=== PATIENT | male | born 1955 | race African-American/Black ===

== ENCOUNTER 2019-01-09 23:16 | Emergency (ER) | payer SELFPAY ==
[~2019-01-09] VITALS: Ht 177.8 cm; Wt 95.3 kg
[~2019-01-09 23:16] MED LIST: ?BP MED; CARB200C3 PO; ESOM20CA PO; MECL-106 PO; NAPR-243 PO; OXYC-12 PO; SCOP1PAT11 TD
--- OUTSIDE RECORDS SUMMARY | 2019-01-09 23:22 | XMS REPORT ---
Author Author ZAY COWAN Organization [facility] Address [address] [place] [address] Care Team Providers Care Property Management Bookkeeper Name Role Phone ZAY COWAN Unavailable PROBLEMS Type Condition ICD9-CM Code BRW89-[id number] Code Onset Dates Condition Status SNOMED Code Problem Trigeminal neuralgia G50.0 Active 00237832 Problem Alcohol abuse F10.10 Active 23969286 Problem Hypercholesteremia E78.00 Active 77729987 Problem Gait disturbance R26.9 Active 12162924 Problem Gastro-esophageal reflux disease without esophagitis K21.9 Active 063011964 Problem Essential hypertension I10 Active 06459905 Problem Benign prostatic hyperplasia with lower urinary tract symptoms, unspecified morphology N40.1 Active 404725170 Problem Erectile dysfunction, unspecified erectile dysfunction type N52.9 Active 405653293 ALLERGIES No Information ENCOUNTERS Encounter Location Date Diagnosis [place] [address] [address]- [address] Jun, [place] [address] [place] [id number] [place] [address] 28398- 1838 Jun, Hypercholesteremia E78.00 [place] [address] [place] [id number] [place] [address] 10195- 7850 May, Essential hypertension I10 ; Trigeminal neuralgia G50.0 ; Erectile dysfunction, unspecified erectile dysfunction type N52.9 ; Vertigo R42 ; Gastro-esophageal reflux disease without esophagitis K21.9 ; Snoring R06.83 and Visual disturbance H53.9 [place] [address] [place] [id number] [place] [address] 07865- 3885 Apr, Essential hypertension I10 [place] [address] [place] [id number] [place] [address] 79340- 8869 Mar, [place] [id number] [place] [id number] [place] [address] 71109- 8346 February, [facility] [address] [place] [id number] [place] [address] 97112- 5527 Dec, [facility] [address] [place] [id number] [place] [address] 78911- 1148 Jun, Essential hypertension I10 and Vertigo R42 [place] [address] 41143- 0770 May, Tooth pain K08.89 and Trigeminal neuralgia G50.0 [place] [address] 70768- 5007 Apr, Gait disturbance R26.9 ; Alcohol abuse F10.10 and Essential hypertension I10 [place] [address] [place] [id number] [place] [address] 69146- 3362 Apr, Trigeminal neuralgia G50.0 ; Essential hypertension I10 ; Erectile dysfunction, unspecified erectile dysfunction type N52.9 ; Gastro- esophageal reflux disease without esophagitis K21.9 and Vertigo R42 [place] [address] [place] [id number] [place] [address] 87177- 9330 Mar, Trigeminal neuralgia G50.0 [place] [address] [place] [id number] [place] [address] 03986- 7423 February, Trigeminal neuralgia G50.0 and Erectile dysfunction, unspecified erectile dysfunction type N52.9 [place] [address] [place] [id number] [place] [address] 96093- 8332 Oct, Erectile dysfunction, unspecified erectile dysfunction type N52.9 [place] [address] [place] [id number] [place] [address] 40622- 2079 Oct, Gastro-esophageal reflux disease without esophagitis K21.9 [place] [address] [place] [id number] [place] [address] 28260- 7304 Oct, Erectile dysfunction, unspecified erectile dysfunction type N52.9 [place] [address] [place] [id number] [place] [address] 61901- 7223 Oct, Trigeminal neuralgia G50.0 ; Erectile dysfunction, unspecified erectile dysfunction type N52.9 and Vertigo R42 [place] [address] [place] [id number] [place] [address] 62841- 5774 Sep, Elevated PSA R97.20 ; Benign prostatic hyperplasia with lower urinary tract symptoms, unspecified morphology N40.1 and Trigeminal neuralgia G50.0 [place] [address] [place] [id number] [place] [address] 23077- 6110 Aug, [place] [address] 87755- 9349 Aug, Gastro-esophageal reflux disease without esophagitis K21.9 ; Vertigo R42 ; Erectile dysfunction, unspecified erectile dysfunction type N52.9 ; Trigeminal neuralgia G50.0 ; Essential hypertension I10 and Prostate cancer screening Z12.5 [place] [address] [place] [id number] [place] [address] 69841- 2144 Aug, [place] [address] [place] [id number] [place] [address] 45166- 9399 Jun, [place] [address] [place] [id number] [place] [address] 18086- 9254 May, Erectile dysfunction, unspecified erectile dysfunction type N52.9 ; Trigeminal neuralgia G50.0 and Essential hypertension I10 [place] [address] [place] [id number] [place] [address] 59742- 8748 Nov, [place] [address] [place] [id number] [place] [address] 12488- 8188 Aug, Trigeminal neuralgia G50.0 ; Insomnia, unspecified type G47.00 and Weight loss R63.4 [place] [address] [place] [id number] [place] [address] 92844- 5132 Jul, [place] [address] [place] [id number] [place] [address] 36554- 0983 Jun, [facility] [address] [address]- 3542 Apr, [facility] [address] [place] [id number] [place] [address] 62899- 8178 February, Neuropathy 355.9 ; GERD (gastroesophageal reflux disease) 530.81 ; Erectile disorder, generalized, mild 302.72 and High serum creatinine 790.99 [facility] [address] [place] [id number] [place] [address] 44851- 7616 February, [facility] [address] [place] [id number] [place] [address] 78049- 2999 Jan, [facility] [address] [place] [id number] [place] [address] 78538- 0564 Jan, [facility] [address] [place] [id number] [place] [address] 43554- 9762 Dec, [facility] [address] [place] [id number] [place] [address] 11266- 8105 Dec, [facility] [address] [place] [address] 45290- 8452 Dec, [facility] [address] [place] [id number] [place] [address] 32212- 7831 Dec, [facility] [address] [address]- 0266 Dec, [facility] [id number] [place] [address] 50625- 0887 Dec, [facility] [address] [address]- 2290 Nov, [facility] [address] [place] [id number] [place] [address] 19676- 7796 Oct, [facility] [address] [address]- 0346 Oct, [facility] [address] [place] [id number] [place] [address]- 3458 Oct, [facility] [place] [facility] [address] [id number] [place] [address]644 Oct, [facility] [place] [facility] [address] [id number] [place] [address]272 Sep, [facility] [place] [facility] [address] [id number] [place] [address]- 3312 Sep, [facility] [place] [facility] [address] [id number] [place] [address]- 8753 May, [facility] [place] [facility] [address] [id number] [place] 6557 May, [facility] [place] [facility] [address] [id number] [place] [address]- 0161 Jan, [facility] [place] [facility] [address] [id number] [place] [address]- 6378 Jan, [facility] [place] [facility] [address] [id number] [place] [address]- 0550 Nov, [facility] [place] [facility] [address] [id number] [place] [address]- 8916 Nov, [facility] [place] [facility] [address] [facility] [id number] [place] [address]- 9475 Nov, [facility] [place] [facility] [address] [id number] [place] [address]- 3841 Nov, [facility] [place] [facility] [address] [facility] [id number] [place] [address]- 5970 Nov, [facility] [place] [facility] [address] [id number] [place] 1776 Nov, [facility] [place] [facility] [address] [facility] [id number] [place] 0765 Nov, [facility] [place] [facility] [address] [facility] [id number] [place] [address]- 3139 Sep, [facility] [address] [facility] [id number] [address]- 2546 Sep, [facility] [address] [place] [id number] [address]- 2546 Sep, [facility] [address] [place] [id number] [address]- 2546 Sep, [facility] [address], [place] [address] 2546 Aug, [facility] [address] [place] [id number] [address]- 7896 Aug, [facility] [address] [id number] [id number] Apr, [facility] [address] [place] [id number] [address]- 7206 Apr, [facility] [address] [place] [id number] [address]- 2146 Dec, IMMUNIZATIONS No Known Immunizations SOCIAL HISTORY Never Assessed REASON FOR VISIT eye exam PLAN OF CARE VITAL SIGNS MEDICATIONS Unknown Medications RESULTS No Results PROCEDURES No Known procedures INSTRUCTIONS MEDICATIONS ADMINISTERED No Known Medications MEDICAL (GENERAL) HISTORY Type Description Date Medical History hypertension Medical History hyperlipidemia Medical History gastroesophageal reflux disease (GERD) Medical History trigeminal neuralgia Medical History vertigo Surgical History hernia repair Hospitalization History surgery only
--- OUTSIDE RECORDS SUMMARY | 2019-01-09 23:22 | XMS REPORT ---
Author Author ZAY COWAN Organization [facility] Address [address] [place] [address] Care Team Providers Care Electrical Equipment Technician Name Role Phone ZAY COWAN Unavailable PROBLEMS Type Condition ICD9-CM Code OCM90-KY Code Onset Dates Condition Status SNOMED Code Problem Trigeminal neuralgia G50.0 Active 34982603 Problem Alcohol abuse F10.10 Active 83022525 Problem Hypercholesteremia E78.00 Active 26555961 Problem Gait disturbance R26.9 Active 69694760 Problem Gastro-esophageal reflux disease without esophagitis K21.9 Active 024422821 Problem Essential hypertension I10 Active 58547665 Problem Benign prostatic hyperplasia with lower urinary tract symptoms, unspecified morphology N40.1 Active 631534609 Problem Erectile dysfunction, unspecified erectile dysfunction type N52.9 Active 714539944 ALLERGIES No Known Allergies ENCOUNTERS Encounter Location Date Diagnosis [place] [address] [address]- 7359 Jun, [place] [address] 64639- 5563 Jun, Hypercholesteremia E78.00 [facility] [address] [place] [id number] [place] [address] 66362- 2441 May, Essential hypertension I10 ; Trigeminal neuralgia G50.0 ; Erectile dysfunction, unspecified erectile dysfunction type N52.9 ; Vertigo R42 ; Gastro-esophageal reflux disease without esophagitis K21.9 ; Snoring R06.83 and Visual disturbance H53.9 [facility] [address] [place] [id number] [place] [address] 30206- 2299 Apr, Essential hypertension I10 [place] [address] 08334- 8041 Mar, [facility] [address] [place] [id number] [place] [address] 31944- 5550 February, [facility] [address] [place] [id number] [place] [address] 56518- 9696 Dec, [facility] [address] [place] [id number] [place] [address] 62879- 0023 14 Jun, 2017 Essential hypertension I10 and Vertigo R42 [place] [address] 66782- 0680 May, Tooth pain K08.89 and Trigeminal neuralgia G50.0 [place] [address] 10563- 3198 Apr, Gait disturbance R26.9 ; Alcohol abuse F10.10 and Essential hypertension I10 [place] [address] [place] [id number] [place] [address] 01930- 8242 Apr, Trigeminal neuralgia G50.0 ; Essential hypertension I10 ; Erectile dysfunction, unspecified erectile dysfunction type N52.9 ; Gastro- esophageal reflux disease without esophagitis K21.9 and Vertigo R42 [place] [address] [place] [id number] [place] [address] 47209- 1070 Mar, Trigeminal neuralgia G50.0 [place] [address] [place] [id number] [place] [address] 17010- 1937 February, Trigeminal neuralgia G50.0 and Erectile dysfunction, unspecified erectile dysfunction type N52.9 [place] [address] [place] [id number] [place] [address] 16236- 6690 Oct, Erectile dysfunction, unspecified erectile dysfunction type N52.9 [place] [address] [place] [id number] [place] [address] 22039- 2271 Oct, Gastro-esophageal reflux disease without esophagitis K21.9 [place] [address] [place] [id number] [place] [address] 00072- 4390 Oct, Erectile dysfunction, unspecified erectile dysfunction type N52.9 [place] [address] [place] [id number] [place] [address] 84269- 0426 Oct, Trigeminal neuralgia G50.0 ; Erectile dysfunction, unspecified erectile dysfunction type N52.9 and Vertigo R42 [place] [address] [place] [id number] [place] [address] 38659- 3825 Sep, Elevated PSA R97.20 ; Benign prostatic hyperplasia with lower urinary tract symptoms, unspecified morphology N40.1 and Trigeminal neuralgia G50.0 [place] [address] [place] [id number] [place] [address] 25303- 8716 Aug, [place] [address] 09045- 9812 Aug, Gastro-esophageal reflux disease without esophagitis K21.9 ; Vertigo R42 ; Erectile dysfunction, unspecified erectile dysfunction type N52.9 ; Trigeminal neuralgia G50.0 ; Essential hypertension I10 and Prostate cancer screening Z12.5 [place] [address] [place] [id number] [place] [address] 16696- 4707 Aug, [place] [address] [place] [id number] [place] [address] 59223- 4202 Jun, [place] [address] [place] [id number] [place] [address] 66656- 0983 May, Erectile dysfunction, unspecified erectile dysfunction type N52.9 ; Trigeminal neuralgia G50.0 and Essential hypertension I10 [place] [address] [place] [id number] [place] [address] 82892- 2909 Nov, [place] [address] [place] [id number] [place] [address] 45352- 2948 Aug, Trigeminal neuralgia G50.0 ; Insomnia, unspecified type G47.00 and Weight loss R63.4 [place] [address] [place] [id number] [place] [address] 95598- 1147 Jul, [place] [address] [place] [id number] [place] [address] 07982- 6378 Jun, [facility] [address] [address]- 8523 Apr, [facility] [address] [place] [id number] [place] [address] 36523- 2885 February, Neuropathy 355.9 ; GERD (gastroesophageal reflux disease) 530.81 ; Erectile disorder, generalized, mild 302.72 and High serum creatinine 790.99 [facility] [address] [place] [id number] [place] [address] 29398- 2146 February, [facility] [address] [place] [id number] [place] [address] 26278- 0447 Jan, [facility] [address] [place] [id number] [place] [address] 50514- 1596 Jan, [facility] [address] [place] [id number] [place] [address] 82291- 1632 Dec, [facility] [address] [place] [id number] [place] [address] 04618- 2730 Dec, [facility] [id number] [place] [address] 75119- 6435 Dec, [facility] [address] [place] [id number] [place] [address] 29293- 1926 Dec, [facility] [address] [address]- 6806 Dec, [facility] [address] [address]- 9938 Dec, [facility] [address] [address]- 4992 Nov, [facility] [address] [place] [id number] [place] [address] 07477- 9236 Oct, [facility] [address] [address]- 8286 Oct, [facility] [address] [place] [id number] [place] [address]- 4346 Oct, [facility] [address] [id number] [place] [address]- 8765 Oct, [facility] [place] [facility] [address] [id number] [place] 5632 Sep, [facility] [place] [facility] [address] [id number] [place] [address]- 0927 Sep, [facility] [place] [facility] [address] [id number] [place] [address]- 3309 May, [facility] [place] [facility] [address] [id number] [place] 3922 May, [facility] [place] [facility] [address] [facility] [id number] [place] [address]- 8408 Jan, [facility] [place] [facility] [address] [id number] [place] [address]- 8991 Jan, [facility] [place] [facility] [address] [id number] [place] [address]- 7775 Nov, [facility] [place] [facility] [address] [id number] [place] [address]- 1179 Nov, [facility] [place] [facility] [address] [facility] [id number] [place] [address]- 5150 Nov, [facility] [place] [facility] [address] [facility] [id number] [place] [address]- 5456 Nov, [facility] [place] [facility] [address] [id number] [place] [address]- 1049 Nov, [facility] [place] [facility] [address] [id number] [place] [address]- 6735 Nov, [facility] [place] [facility] [address] [facility] [id number] [place] [address]- 3276 Nov, [facility] [place] [facility] [address] [facility] [id number] [place] [address]- 5950 Sep, [facility] [address] [facility] [id number] [address]- 2546 Sep, [facility] [address] [facility] [id number] [place] [address]- 2546 Sep, [facility] [address] [facility] [id number] [place] [address]- 2546 Sep, [facility] [address] [facility] [id number] [place] [address]- 2546 Aug, [facility] [address] [facility] [id number] [place] [address] 2546 Aug, [facility] [address] [id number] [id number] Apr, [facility] [address] [facility] [id number] [address] 2546 Apr, [facility] [address] [facility] [id number] [place] [address] 2546 Dec, IMMUNIZATIONS No Known Immunizations SOCIAL HISTORY Never Assessed REASON FOR VISIT Hypertension follow up, unable to take norvasc, it causes dizziness. KATHARINA Villar , Trouble sleeping. PLAN OF CARE Activity Details Follow Up 3 Months Reason:BP VITAL SIGNS Height 71 in 2018-06-15 Weight 201.2 lbs 2018-06-15 Temperature 97.4 degrees Fahrenheit 2018-06-15 Heart Rate 84 bpm 2018-06-15 Respiratory Rate 18 2018-06-15 BMI 28.06 kg/m2 2018-06-15 Blood pressure systolic 172 mmHg 2018-06-15 Blood pressure diastolic 118 mmHg 2018-06-15 MEDICATIONS Medication Instructions Dosage Frequency Start Date End Date Duration Status Tegretol 200 mg Orally Twice a day 3 tablets 12h 30 days Active Coreg 6.25 MG Orally 2 times a day 1 capsule 12h May, 90 days Active Viagra 100 mg Orally PRN 1 /2 tablet as needed May, Active Nexium 40 mg Orally Once a day 1 capsule 24h 14 Dec, 2014 90 days Active RESULTS No Results PROCEDURES Procedure Date Ordered Result Body Site COMPREHEN METABOLIC PANEL Jun 15, 2018 LIPID PANEL Jun 15, 2018 INSTRUCTIONS MEDICATIONS ADMINISTERED No Known Medications MEDICAL (GENERAL) HISTORY Type Description Date Medical History hypertension Medical History hyperlipidemia Medical History gastroesophageal reflux disease (GERD) Medical History trigeminal neuralgia Medical History vertigo Surgical History hernia repair Hospitalization History surgery only
--- OUTSIDE RECORDS SUMMARY | 2019-01-09 23:22 | XMS REPORT ---
Author Author ZAY COWAN Organization [facility] Address [address] [place] [address] Care Team Providers Care Duplicating Machine Operator Name Role Phone ZAY COWAN Unavailable PROBLEMS Type Condition ICD9-CM Code [id number] Code Onset Dates Condition Status SNOMED Code Problem Trigeminal neuralgia G50.0 Active 55158085 Problem Alcohol abuse F10.10 Active 57953616 Problem Hypercholesteremia E78.00 Active 30700724 Problem Gait disturbance R26.9 Active 78062552 Problem Gastro-esophageal reflux disease without esophagitis K21.9 Active 250534298 Problem Essential hypertension I10 Active 85181413 Problem Benign prostatic hyperplasia with lower urinary tract symptoms, unspecified morphology N40.1 Active 757817764 Problem Erectile dysfunction, unspecified erectile dysfunction type N52.9 Active 402103822 ALLERGIES No Information ENCOUNTERS Encounter Location Date Diagnosis [place] [address] [address]- [address] Jun, [place] [address] [place] [id number] [place] [address] 88147- 6436 Jun, Hypercholesteremia E78.00 [place] [address] [place] [id number] [place] [address] 56751- 2564 May, Essential hypertension I10 ; Trigeminal neuralgia G50.0 ; Erectile dysfunction, unspecified erectile dysfunction type N52.9 ; Vertigo R42 ; Gastro-esophageal reflux disease without esophagitis K21.9 ; Snoring R06.83 and Visual disturbance H53.9 [place] [address] [place] [id number] [place] [address] 02762- 1937 Apr, Essential hypertension I10 [place] [address] [place] [id number] [place] [address] 35606- 4099 Mar, [place] [address] [place] [id number] [place] [address] 93292- 1684 February, [facility] [address] [address] [id number] [place] [address] 42471- 7891 Dec, [facility] [id number] [place] [address] 86158- 1191 Jun, Essential hypertension I10 and Vertigo R42 [place] [address] 38403- 8489 May, Tooth pain K08.89 and Trigeminal neuralgia G50.0 [place] [address] 21851- 2273 Apr, Gait disturbance R26.9 ; Alcohol abuse F10.10 and Essential hypertension I10 [place] [address] [place] [id number] [place] [address] 27045- 7066 Apr, Trigeminal neuralgia G50.0 ; Essential hypertension I10 ; Erectile dysfunction, unspecified erectile dysfunction type N52.9 ; Gastro- esophageal reflux disease without esophagitis K21.9 and Vertigo R42 [place] [address] [place] [id number] [place] [address] 98055- 6918 Mar, Trigeminal neuralgia G50.0 [place] [address] [place] [id number] [place] [address] 44566- 0803 February, Trigeminal neuralgia G50.0 and Erectile dysfunction, unspecified erectile dysfunction type N52.9 [place] [address] [place] [id number] [place] [address] 88636- 2636 Oct, Erectile dysfunction, unspecified erectile dysfunction type N52.9 [place] [address] [place] [id number] [place] [address] 14442- 1171 Oct, Gastro-esophageal reflux disease without esophagitis K21.9 [place] [address] [place] [id number] [place] [address] 10278- 2622 Oct, Erectile dysfunction, unspecified erectile dysfunction type N52.9 [place] [address] [place] [id number] [place] [address] 23611- 8947 Oct, Trigeminal neuralgia G50.0 ; Erectile dysfunction, unspecified erectile dysfunction type N52.9 and Vertigo R42 [place] [address] [place] [id number] [place] [address] 97909- 9400 Sep, Elevated PSA R97.20 ; Benign prostatic hyperplasia with lower urinary tract symptoms, unspecified morphology N40.1 and Trigeminal neuralgia G50.0 [place] [address] [place] [id number] [place] [address] 80930- 5759 Aug, [place] [address] 42811- 5048 Aug, Gastro-esophageal reflux disease without esophagitis K21.9 ; Vertigo R42 ; Erectile dysfunction, unspecified erectile dysfunction type N52.9 ; Trigeminal neuralgia G50.0 ; Essential hypertension I10 and Prostate cancer screening Z12.5 [place] [address] [place] [id number] [place] [address] 35896- 1137 Aug, [place] [address] [place] [id number] [place] [address] 63156- 2899 Jun, [place] [address] [place] [id number] [place] [address] 49068- 0443 May, Erectile dysfunction, unspecified erectile dysfunction type N52.9 ; Trigeminal neuralgia G50.0 and Essential hypertension I10 [place] [address] [place] [id number] [place] [address] 20443- 1687 Nov, [place] [address] [place] [id number] [place] [address] 48457- 6880 Aug, Trigeminal neuralgia G50.0 ; Insomnia, unspecified type G47.00 and Weight loss R63.4 [place] [address] [place] [id number] [place] [address] 37628- 2147 Jul, [place] [address] [place] [id number] [place] [address] 44146- 1561 Jun, [facility] [address] [address]- 8902 Apr, [facility] [address] [place] [id number] [place] [address] 72011- 3596 February, Neuropathy 355.9 ; GERD (gastroesophageal reflux disease) 530.81 ; Erectile disorder, generalized, mild 302.72 and High serum creatinine 790.99 [facility] [address] [place] [id number] [place] [address] 25388- 3496 February, [facility] [address] [place] [id number] [place] [address] 37853- 8530 Jan, [facility] [address] [place] [id number] [place] [address] 56862- 0823 Jan, [facility] [address] [place] [id number] [place] [address] 71292- 3287 Dec, [facility] [address] [place] [id number] [place] [address] 11264- 2550 Dec, [facility] [address] [place] [address] 17834- 8486 Dec, [facility] [address] [place] [id number] [place] [address] 10231- 7654 Dec, [facility] [address] [address]- 7846 Dec, [facility] [address] [place] [address] 56099- 5704 Dec, [facility] [address], [place] [address]- 5899 Nov, [facility] [address] [place] [address] [id number] [place] [address] 39722- 5986 Oct, [facility] [address], [place] [address]- 1866 Oct, [facility] [address] [place] [address] [id number] [place] [address]- 1148 Oct, [facility] [place] [facility] [address] [id number] [place] 1494 Oct, [facility] [place] [facility] [address] [id number] [place] 0339 Sep, [facility] [place] [facility] [address] [id number] [place] [address]- 0271 Sep, [facility] [place] [facility] [address] [id number] [place] [address]- 1535 May, [facility] [place] [facility] [address] [id number] [place] 6996 May, [facility] [place] [facility] [address] [id number] [place] [address]- 6579 Jan, [facility] [place] [facility] [address] [id number] [place] [address]- 9225 Jan, [facility] [place] [facility] [address] [id number] [place] [address]- 1505 Nov, [facility] [place] [facility] [address] [id number] [place] [address]- 1364 Nov, [facility] [place] [facility] [address] [facility] [id number] [place] [address]- 2632 Nov, [facility] [place] [facility] [address] [id number] [place] [address]- 6076 Nov, [facility] [place] [facility] [address] [facility] [id number] [place] [address]- 0054 Nov, [facility] [place] [facility] [address] [id number] [place] 2951 Nov, [facility] [place] [facility] [address] [facility] [id number] [place] 0220 Nov, [facility] [place] [facility] [address] [facility] [id number] [place] [address]- 5305 Sep, [facility] [address] [facility] [id number] [address]- 2546 Sep, [facility] [address] [place] [address] [id number] [address]- 2546 Sep, [facility] [address] [place] [address] [id number] [address]- 2546 Sep, [facility] [address] [address]- 2546 Aug, [facility] [address] [address] [id number] [address]- 2216 Aug, [facility] [address] [id number] [address] Apr, [facility] [address] [place] [address] [id number] [address]- 8546 Apr, [facility] [address] [address] [id number], [place] [address]- 1256 Dec, IMMUNIZATIONS No Known Immunizations SOCIAL HISTORY Never Assessed REASON FOR VISIT Patient education PLAN OF CARE VITAL SIGNS MEDICATIONS Unknown Medications RESULTS No Results PROCEDURES No Known procedures INSTRUCTIONS MEDICATIONS ADMINISTERED No Known Medications MEDICAL (GENERAL) HISTORY Type Description Date Medical History hypertension Medical History hyperlipidemia Medical History gastroesophageal reflux disease (GERD) Medical History trigeminal neuralgia Medical History vertigo Surgical History hernia repair Hospitalization History surgery only
--- OUTSIDE RECORDS SUMMARY | 2019-01-09 23:23 | XMS REPORT ---
Author Author ZAY COWAN Organization [employer] Address Unknown Phone Unavailable Care Team Providers Care Tractor Operator Battery Name Role Phone ZAY COWAN CP Unavailable Allergies No Known Allergies Problems Problem Type Condition Code Onset Dates Condition Status Problem Issue of repeat prescriptions V68.1 Active Problem Other and unspecified hyperlipidemia 272.4 Active Problem Personal history of tobacco use, presenting hazards to health V15.82 Active Problem Cough 786.2 Active Problem Erectile dysfunction, unspecified erectile dysfunction type N52.9 Active Problem Essential hypertension I10 Active Problem Gastro-esophageal reflux disease without esophagitis K21.9 Active Problem Routine general medical examination at health care facility V70.0 Active Problem Esophageal reflux 530.81 Active Problem Trigeminal neuralgia G50.0 Active Problem Alcohol abuse F10.10 Active Medications No Known Medications Results No Known Results Summary Purpose [employer] Submission
--- OUTSIDE RECORDS SUMMARY | 2019-01-09 23:23 | XMS REPORT ---
Author Author KAMRYN BRANTLEY Organization [employer] Address Unknown Phone Unavailable Care Team Providers Care Umbrella Cutter Name Role Phone KAMRYN BRANTLEY CP Unavailable Allergies, Adverse Reactions, Alerts Substance Reaction Event Type N.K.D.A. Info Not Available Non Drug Allergy Problems Problem Type Condition Code Onset Dates Condition Status Assessment Essential hypertension I10 Active Assessment Erectile dysfunction, unspecified erectile dysfunction type N52.9 Active Assessment Trigeminal neuralgia G50.0 Active Problem Routine general medical examination at health care facility V70.0 Active Problem Esophageal reflux 530.81 Active Problem Trigeminal neuralgia G50.0 Active Problem Issue of repeat prescriptions V68.1 Active Problem Cough 786.2 Active Problem Other and unspecified hyperlipidemia 272.4 Active Problem Personal history of tobacco use, presenting hazards to health V15.82 Active Medications Medication Code System Code Instructions Start Date End Date Status Dosage Tegretol [facility] [address]-89 200 MG Orally Twice a day (MUST BE TEGRETOL) Nov 20, 2014 2 tablet by Oral route 2 times per day Nexium [facility] [address]-28 40 MG January 05, 2015 1 capsule by Oral route 1 time per day Naproxen [facility] [address]-71 500 MG Orally every 12 hrs May 25, 2016 1 tablet as needed Viagra [facility] [address]-03 100 MG Orally Once a day March 14, 2015 1 tablet as needed Procedures Procedure Coding System Code Date Office Visit, Est Pt., Level 3 CPT-4 55087 May 25, 2016 Vital Signs Date/Time: May 25, 2016 Cardiac Monitoring Heart Rate 80 bpm Weight 205.3 lbs Height 71 in BMI 28.63 Index Blood Pressure Diastolic 130 mmHg Blood Pressure Systolic 192 mmHg Results No Known Results Summary Purpose [employer] Submission
--- OUTSIDE RECORDS SUMMARY | 2019-01-09 23:23 | XMS REPORT ---
Author Author ZAY COWAN Organization [facility] Address [address] [place] [address] Care Team Providers Care Moccasin Sewer Name Role Phone ZAY COWAN Unavailable PROBLEMS Type Condition ICD9-CM Code [id number] Code Onset Dates Condition Status SNOMED Code Problem Trigeminal neuralgia G50.0 Active 98320142 Problem Alcohol abuse F10.10 Active 47940784 Problem Hypercholesteremia E78.00 Active 95516855 Problem Gait disturbance R26.9 Active 25062447 Problem Gastro-esophageal reflux disease without esophagitis K21.9 Active 866262914 Problem Essential hypertension I10 Active 84707789 Problem Benign prostatic hyperplasia with lower urinary tract symptoms, unspecified morphology N40.1 Active 391456227 Problem Erectile dysfunction, unspecified erectile dysfunction type N52.9 Active 022428910 ALLERGIES No Information ENCOUNTERS Encounter Location Date Diagnosis [place] [address] 6[address]12- 5454 Jun, [place] [address] [place] [id number] [place] [address] 34085- 7502 Jun, Hypercholesteremia E78.00 [place] [address] [place] [id number] [place] [address] 22956- 9397 May, Essential hypertension I10 ; Trigeminal neuralgia G50.0 ; Erectile dysfunction, unspecified erectile dysfunction type N52.9 ; Vertigo R42 ; Gastro-esophageal reflux disease without esophagitis K21.9 ; Snoring R06.83 and Visual disturbance H53.9 [place] [address] [place] [id number] [place] [address] 18555- 7538 Apr, Essential hypertension I10 [place] [address] [place] [id number] [place] [address] 33549- 3805 Mar, [place] [address] [place] [id number] [place] [address] 55960- 3245 February, [facility] [address] [place] [id number] [place] [address] 91552- 2485 Dec, [facility] [address] [place] [id number] [place] [address] 61558- 5524 Jun, Essential hypertension I10 and Vertigo R42 [place] [address] 47771- 8106 May, Tooth pain K08.89 and Trigeminal neuralgia G50.0 [place] [address] 32262- 5669 Apr, Gait disturbance R26.9 ; Alcohol abuse F10.10 and Essential hypertension I10 [place] [address] [place] [id number] [place] [address] 77342- 3368 Apr, Trigeminal neuralgia G50.0 ; Essential hypertension I10 ; Erectile dysfunction, unspecified erectile dysfunction type N52.9 ; Gastro- esophageal reflux disease without esophagitis K21.9 and Vertigo R42 [place] [address] [place] [id number] [place] [address] 61930- 4932 Mar, Trigeminal neuralgia G50.0 [place] [address] [place] [id number] [place] [address] 48264- 1856 February, Trigeminal neuralgia G50.0 and Erectile dysfunction, unspecified erectile dysfunction type N52.9 [place] [address] [place] [id number] [place] [address] 43524- 1513 Oct, Erectile dysfunction, unspecified erectile dysfunction type N52.9 [place] [address] [place] [id number] [place] [address] 69967- 3246 Oct, Gastro-esophageal reflux disease without esophagitis K21.9 [place] [address] [place] [id number] [place] [address] 89309- 2706 Oct, Erectile dysfunction, unspecified erectile dysfunction type N52.9 [place] [address] [place] [id number] [place] [address] 74004- 1555 Oct, Trigeminal neuralgia G50.0 ; Erectile dysfunction, unspecified erectile dysfunction type N52.9 and Vertigo R42 [place] [address] [place] [id number] [place] [address] 78914- 0187 Sep, Elevated PSA R97.20 ; Benign prostatic hyperplasia with lower urinary tract symptoms, unspecified morphology N40.1 and Trigeminal neuralgia G50.0 [place] [address] [place] [id number] [place] [address] 09616- 4133 Aug, [place] [address] 03605- 4915 Aug, Gastro-esophageal reflux disease without esophagitis K21.9 ; Vertigo R42 ; Erectile dysfunction, unspecified erectile dysfunction type N52.9 ; Trigeminal neuralgia G50.0 ; Essential hypertension I10 and Prostate cancer screening Z12.5 [place] [address] [place] [id number] [place] [address] 97280- 2667 Aug, [place] [address] [place] [id number] [place] [address] 22841- 9713 Jun, [place] [address] [place] [id number] [place] [address] 76309- 4166 May, Erectile dysfunction, unspecified erectile dysfunction type N52.9 ; Trigeminal neuralgia G50.0 and Essential hypertension I10 [place] [address] [place] [id number] [place] [address] 21495- 8717 Nov, [place] [address] [place] [id number] [place] [address] 83200- 9437 Aug, Trigeminal neuralgia G50.0 ; Insomnia, unspecified type G47.00 and Weight loss R63.4 [place] [address] [place] [id number] [place] [address] 05078- 5283 Jul, [place] [address] [place] [id number] [place] [address] 39503- 1279 Jun, [facility] [address] [address]- 3006 Apr, [facility] [address] [place] [id number] [place] [address] 27254- 3634 February, Neuropathy 355.9 ; GERD (gastroesophageal reflux disease) 530.81 ; Erectile disorder, generalized, mild 302.72 and High serum creatinine 790.99 [facility] [id number] [place] [address] 15673- 3466 February, [facility] [address] [place] [id number] [place] [address] 83425- 2364 Jan, [facility] [id number] [place] [address] 60020- 1421 Jan, [facility] [address] [id number] [place] [address] 33598- 4264 Dec, [facility] [address] [place] [address] [id number] [place] [address] 99641- 6463 Dec, [facility] [address] [place] [address] 72789- 6433 Dec, [facility] [id number] [place] [address] 88502- 0330 Dec, [facility] [address], [place] [address]- 3136 Dec, [facility] [address] [place] [address] 59226- 2599 Dec, [facility] [address], [place] [address]- 6595 Nov, [facility] [id number] [place] [address] 81421- 8536 Oct, [facility] [address], [place] [address]- 7876 Oct, [facility] [id number] [place] [address]- 2080 Oct, [facility] [place] [facility] [address] [id number] [place] 2603 Oct, [facility] [place] [facility] [address] [id number] [place] 7107 Sep, [facility] [place] [facility] [address] [id number] [place] [address]- 7254 Sep, [facility] [place] [facility] [address] [id number] [place] [address]- 8658 May, [facility] [place] [facility] [address] [id number] [place] 4820 May, [facility] [place] [facility] [address] [id number] [place] [address]- 7052 Jan, [facility] [place] [facility] [address] [id number] [place] [address]- 6875 Jan, [facility] [place] [facility] [address] [id number] [place] [address]- 7667 Nov, [facility] [place] [facility] [address] [id number] [place] [address]- 0554 Nov, [facility] [place] [facility] [address] [facility] [id number] [place] [address]- 1856 Nov, [facility] [place] [facility] [address] [id number] [place] [address]- 2263 Nov, [facility] [place] [facility] [address] [facility] [id number] [place] [address]- 3760 Nov, [facility] [place] [facility] [address] [id number] [place] 1942 Nov, [facility] [place] [facility] [address] [facility] [id number] [place] 4603 Nov, [facility] [place] [facility] [address] [facility] [id number] [place] [address]- 1270 Sep, [facility] [address] [facility] [id number] [address]- 2546 Sep, [facility] [address] [facility] [id number], [place] [address]- 2546 Sep, [facility] [address] [facility] [id number], [place] [address]- 2546 Sep, [facility] [id number], [place] [address]- 2546 Aug, [facility] [address] [facility] [id number], [place] [address]- 2546 Aug, [facility] [address] [id number] [id number] Apr, [facility] [id number] [address]- 2546 Apr, [facility] [id number], [place] [address]- 2546 Dec, IMMUNIZATIONS No Known Immunizations SOCIAL HISTORY Never Assessed REASON FOR VISIT Refill request PLAN OF CARE VITAL SIGNS MEDICATIONS Medication Instructions Dosage Frequency Start Date End Date Duration Status Tegretol 200 mg Orally Twice a day 3 tablets 12h 30 days Active Norvasc 10 mg Orally Once a day 1 tablet 24h Apr, 30 days Active RESULTS No Results PROCEDURES No Known procedures INSTRUCTIONS MEDICATIONS ADMINISTERED No Known Medications MEDICAL (GENERAL) HISTORY Type Description Date Medical History hypertension Medical History hyperlipidemia Medical History gastroesophageal reflux disease (GERD) Medical History trigeminal neuralgia Medical History vertigo Surgical History hernia repair Hospitalization History surgery only
--- OUTSIDE RECORDS SUMMARY | 2019-01-09 23:23 | XMS REPORT ---
Author Author ZAY COWAN Organization [facility] Address [address] [place] [address] Care Team Providers Care Broom Worker Name Role Phone ZAY COWAN Unavailable PROBLEMS Type Condition ICD9-CM Code AHI13-JG Code Onset Dates Condition Status SNOMED Code Problem Alcohol abuse F10.10 Active 36318629 Problem Gait disturbance R26.9 Active 62198253 Problem Benign prostatic hyperplasia with lower urinary tract symptoms, unspecified morphology N40.1 Active 548436864 Problem Essential hypertension I10 Active 22486609 Problem Trigeminal neuralgia G50.0 Active 29540005 Problem Erectile dysfunction, unspecified erectile dysfunction type N52.9 Active 188375476 Problem Gastro-esophageal reflux disease without esophagitis K21.9 Active 639832169 ALLERGIES No Information ENCOUNTERS Encounter Location Date Diagnosis [place] [address] [address] Mar, [place] [address] 559[address]- 8171 February, [facility] [address] [address]- [address] Dec, [facility] [address] 15[address]- 6553 Jun, Essential hypertension I10 and Vertigo R42 [place] [address] 56606- 9664 May, Tooth pain K08.89 and Trigeminal neuralgia G50.0 [facility] [address] 22863- 3758 Apr, Gait disturbance R26.9 ; Alcohol abuse F10.10 and Essential hypertension I10 [place] [address] [place] [id number] [place] [address] Apr, Trigeminal neuralgia G50.0 ; Essential hypertension I10 ; Erectile dysfunction, unspecified erectile dysfunction type N52.9 ; Gastro- esophageal reflux disease without esophagitis K21.9 and Vertigo R42 [facility] [address] [place] [id number] [place] [address] 75757- 4234 Mar, Trigeminal neuralgia G50.0 [place] [address] 22047- 8607 February, Trigeminal neuralgia G50.0 and Erectile dysfunction, unspecified erectile dysfunction type N52.9 [place] [address] [place] 850737- 9[address] Oct, Erectile dysfunction, unspecified erectile dysfunction type N52.9 [place] [address] 43666- 7479 Oct, Gastro-esophageal reflux disease without esophagitis K21.9 [place] [address] 94118- 7501 Oct, Erectile dysfunction, unspecified erectile dysfunction type N52.9 [place] [address] 58173- 7252 Oct, Trigeminal neuralgia G50.0 ; Erectile dysfunction, unspecified erectile dysfunction type N52.9 and Vertigo R42 [place] [address] [place] [id number]- [address]324 Sep, Elevated PSA R97.20 ; Benign prostatic hyperplasia with lower urinary tract symptoms, unspecified morphology N40.1 and Trigeminal neuralgia G50.0 [place] [address] 11779- 7100 Aug, [place] [address] 20528- 6525 Aug, Gastro-esophageal reflux disease without esophagitis K21.9 ; Vertigo R42 ; Erectile dysfunction, unspecified erectile dysfunction type N52.9 ; Trigeminal neuralgia G50.0 ; Essential hypertension I10 and Prostate cancer screening Z12.5 [facility] [address] [place] [id number] [place] [address] 99545- 9128 Aug, [facility] [address] [place] [id number] [place] [address] 63471- 3690 Jun, [facility] [address] [address]- 6327 May, Erectile dysfunction, unspecified erectile dysfunction type N52.9 ; Trigeminal neuralgia G50.0 and Essential hypertension I10 [facility] [address] 15390- 3521 Nov, [facility] [address] 75696- 1409 Aug, Trigeminal neuralgia G50.0 ; Insomnia, unspecified type G47.00 and Weight loss R63.4 [facility] [address] [place] [id number] [place] [address] 46461- 2912 Jul, [facility] [address] [place] [id number] [place] [address] 57410- 8406 Jun, [facility] [address] 17722- 0154 Apr, [facility] [address] [place] [id number] [place] [address] 13796- 6830 February, Neuropathy 355.9 ; GERD (gastroesophageal reflux disease) 530.81 ; Erectile disorder, generalized, mild 302.72 and High serum creatinine 790.99 [facility] [address] [place] [id number] [place] [address] 27969- 9002 February, [facility] [address] 19968- 1300 Jan, [facility] [address] [place] [id number] [place] [address] 02581- 3044 Jan, [facility] [address] [place] [address]- 4872 Dec, [facility] [place] [facility] [address] [id number] [place] [address]- 0169 Dec, [facility] [place] [facility] [address] [id number] [place] [address]- 7800 Dec, [facility] [place] [facility] [address] [id number] [place] [address]- 7645 Dec, [facility] [place] [facility] [address] [id number] [place] [address]- 6849 Dec, [facility] [place] [facility] [address] [id number] [place] [address]- 8180 Dec, [facility] [place] [facility] [address] [id number] [place] [address]- 4705 Nov, [facility] [place] [facility] [address] [id number] [place] [address]- 1066 Oct, [facility] [place] [facility] [address] [id number] [place] [address]- 9891 Oct, [facility] [place] [facility] [address] [id number] [place] [address]- 6278 Oct, [facility] [place] [facility] [address] [id number] [place] [address]- 5545 Oct, [facility] [place] [facility] [address] [id number] [place] [address]- 0159 Sep, [facility] [place] [facility] [address] [id number] [place] [address]- 1451 Sep, [facility] [place] [facility] [address] [id number] [place] [address]- 5091 May, [facility] [place] [facility] [address] [id number] [place] [address] May, [facility] [place] [facility] [address] [id number] [place] [address]- 6047 Jan, [facility] [place] [facility] [address] [id number] [place] [address]- 3030 Jan, [facility] [address] [id number] [place] [address]- 0579 Nov, [facility] [address] [id number] [place] [address]- 6273 Nov, [facility] [address] [id number] [place] [address]- 2782 Nov, [facility] [address] [id number] [place] [address]- 4903 Nov, [facility] [address] [id number] [place] [address]- 6638 Nov, [facility] [address] [facility] [id number] [place] [address]- 2871 Nov, [facility] [address] [facility] [id number] [place] [address]- 0692 Nov, [facility] [address] [id number] [place] [address]- 3353 Sep, [facility] [address] [facility] [id number] [address]- 5166 Sep, [facility] [address] [facility] [id number] [address]- 1465 Sep, [facility] [place] [facility] [address] [id number] [address]- 2432 Sep, [facility] [address] [id number] [place] [address]- 8986 Aug, [facility] [address] [facility] [id number] [place] [address]- 7407 Aug, [facility] [place] [address] [id number] [id number] Apr, [facility] [address] [facility] [id number] [address]- 9116 Apr, [facility] [address] [facility] [id number] [place] [address]- 5921 Dec, IMMUNIZATIONS No Known Immunizations SOCIAL HISTORY Never Assessed REASON FOR VISIT Medication refill request PLAN OF CARE VITAL SIGNS MEDICATIONS Unknown Medications RESULTS No Results PROCEDURES No Known procedures INSTRUCTIONS MEDICATIONS ADMINISTERED No Known Medications MEDICAL (GENERAL) HISTORY Type Description Date Medical History hypertension Medical History hyperlipidemia Medical History gastroesophageal reflux disease (GERD) Medical History trigeminal neuralgia Medical History vertigo Surgical History hernia repair Hospitalization History surgery only
--- OUTSIDE RECORDS SUMMARY | 2019-01-09 23:23 | XMS REPORT ---
Author Author ZAY COWAN [facility] Address [address] [place] [address] Care Team Providers Care Design Transferrer Name Role Phone ZAY COWAN Unavailable PROBLEMS Type Condition ICD9-CM Code EJY21-LV Code Onset Dates Condition Status SNOMED Code Problem Alcohol abuse F10.10 Active 47234253 Problem Gait disturbance R26.9 Active 85983651 Problem Benign prostatic hyperplasia with lower urinary tract symptoms, unspecified morphology N40.1 Active 817872164 Problem Essential hypertension I10 Active 20687798 Problem Trigeminal neuralgia G50.0 Active 27844666 Problem Erectile dysfunction, unspecified erectile dysfunction type N52.9 Active 953507480 Problem Gastro-esophageal reflux disease without esophagitis K21.9 Active 512546284 ALLERGIES Unknown Allergies SOCIAL HISTORY No smoking Hx information available PLAN OF CARE VITAL SIGNS MEDICATIONS Medication Instructions Dosage Frequency Start Date End Date Duration Status Nexium 40 mg Orally Once a day 1 capsule 24h Dec, 30 days Active RESULTS No Results PROCEDURES No Known procedures IMMUNIZATIONS No Known Immunizations
--- OUTSIDE RECORDS SUMMARY | 2019-01-09 23:23 | XMS REPORT ---
Author Author ZAY COWAN Organization [facility] Address [address] [place] [address] Care Team Providers Care Gold Buyer Name Role Phone ZAY COWAN Unavailable PROBLEMS Type Condition ICD9-CM Code FIN01-HV Code Onset Dates Condition Status SNOMED Code Problem Alcohol abuse F10.10 Active 06620272 Problem Gait disturbance R26.9 Active 18547349 Problem Benign prostatic hyperplasia with lower urinary tract symptoms, unspecified morphology N40.1 Active 118738098 Problem Essential hypertension I10 Active 51968591 Problem Trigeminal neuralgia G50.0 Active 65403437 Problem Erectile dysfunction, unspecified erectile dysfunction type N52.9 Active 302682706 Problem Gastro-esophageal reflux disease without esophagitis K21.9 Active 404227272 ALLERGIES No Known Allergies ENCOUNTERS Encounter Location Date Diagnosis [place] [address] [address]- [address] February, [place] [address] 25429- 4446 Dec, [place] [address] 90546- 8509 Jun, Essential hypertension I10 and Vertigo R42 [place] [address] 51818- 1586 May, Tooth pain K08.89 and Trigeminal neuralgia G50.0 [place] [address] 44631- 0628 24 Apr, 2017 Gait disturbance R26.9 ; Alcohol abuse F10.10 and Essential hypertension I10 [facility] [address] [address]- 2830 Apr, Trigeminal neuralgia G50.0 ; Essential hypertension I10 ; Erectile dysfunction, unspecified erectile dysfunction type N52.9 ; Gastro- esophageal reflux disease without esophagitis K21.9 and Vertigo R42 [place] [address] [place] [id number] [place] [address] Mar, Trigeminal neuralgia G50.0 [place] [address] [place] [id number] [place] [address] 78483- 5662 February, Trigeminal neuralgia G50.0 and Erectile dysfunction, unspecified erectile dysfunction type N52.9 [place] [address] [place] [id number] [place] [address]- 7830 Oct, Erectile dysfunction, unspecified erectile dysfunction type N52.9 [place] [address] [place] [address]67866- 8075 Oct, Gastro-esophageal reflux disease without esophagitis K21.9 [place] [address] 78492- 6425 Oct, Erectile dysfunction, unspecified erectile dysfunction type N52.9 [place] [address] [place] [id number] [place] [address] 15076- 9377 Oct, Trigeminal neuralgia G50.0 ; Erectile dysfunction, unspecified erectile dysfunction type N52.9 and Vertigo R42 [place] [address] [place] [id number] [place] [address] 72929- 4361 Sep, Elevated PSA R97.20 ; Benign prostatic hyperplasia with lower urinary tract symptoms, unspecified morphology N40.1 and Trigeminal neuralgia G50.0 [place] [address] [place] [id number] [place] [address] 45442- 1467 Aug, [place]- 4940 Aug, Gastro-esophageal reflux disease without esophagitis K21.9 ; Vertigo R42 ; Erectile dysfunction, unspecified erectile dysfunction type N52.9 ; Trigeminal neuralgia G50.0 ; Essential hypertension I10 and Prostate cancer screening Z12.5 [place] [address] [place] [id number] [place] [address] 78526- 3418 Aug, [facility] [address] [place] [id number] [place] [address] 43808- 2520 Jun, [facility] [address] [place] [id number] [place] [address] 29775788- 3889 May, Erectile dysfunction, unspecified erectile dysfunction type N52.9 ; Trigeminal neuralgia G50.0 and Essential hypertension I10 [facility] [address] 61528- 0284 Nov, [facility] [address] 03129- 6994 Aug, Trigeminal neuralgia G50.0 ; Insomnia, unspecified type G47.00 and Weight loss R63.4 [facility] [address] [place] [id number] [place] [address] 95136- 1160 Jul, [facility] [address] [place] [id number] [place] [address] 27939- 6011 Jun, [facility] [address] [place] [id number] [place] [address] 60821- 7360 Apr, [facility] [address] [place] [id number] [place] [address] 07983- 0991 February, Neuropathy 355.9 ; GERD (gastroesophageal reflux disease) 530.81 ; Erectile disorder, generalized, mild 302.72 and High serum creatinine 790.99 [facility] [address] [place] [id number] [place] [address] 33303- 4844 February, [facility] [address] [place] [id number] [place] [address] 98081- 9685 Jan, [facility] [address] [place] [id number] [place] [address] 01920- 7385 Jan, [facility] [address] [place] [id number] [place] [address] 38068- 4603 Dec, [facility] [address] [place] [id number] [address]- 1102 26 Dec, 2014 [facility] [address] [id number] [place] [address]- 7052 Dec, [facility] [place] [facility] [address] [id number] [place] [address]- 5128 14 Dec, 2014 [facility] [place] [facility] [address] [id number] [place] [address]- 2407 Dec, [facility] [place] [facility] [address] [id number] [place] [address]- 7567 Dec, [facility] [place] [facility] [address] [id number] [place] [address]- 6555 Nov, [facility] [place] [facility] [address] [id number] [place] [address]- 2808 Oct, [facility] [address] [id number] [place] [address]- 9211 Oct, [facility] [address] [id number] [place] [address]- 2903 Oct, [facility] [place] [facility] [address] [id number] [place] [address]- 3604 Oct, [facility] [address] [id number] [place] [address]- 2408 Sep, [facility] [place] [facility] [address] [id number] [place] [address]- 9647 Sep, [facility] [place] [facility] [address] [id number] [place] [address]- 4236 May, [facility] [place] [facility] [address] [id number] [place] [address]- 4246 May, [facility] [place] [facility] [address] [id number] [place] [address]- 2530 Jan, [facility] [place] [facility] [address] [id number] [place] [address]- 5215 Jan, [facility] [place] [facility] [address] [id number] [place] [address]- 7002 Nov, [facility] [address] [id number] [place] [address]- 2849 Nov, [facility] [address] [facility] [id number] [place] [address]- 9234 Nov, [facility] [address] [id number] [place] [address]- 4558 Nov, [facility] [address] [id number] [place] [address]- 7097 Nov, [facility] [address] [facility] [id number] [place] [address]- 2548 Nov, [facility] [address] [facility] [id number] [place] [address]- 3564 Nov, [facility] [address] [id number], [place] [address]- 0437 Sep, [facility] [address] [facility] [id number], [place] [address]- 2490 Sep, [facility] [address] [facility] [id number], [place] [address]- 9276 Sep, [facility] [address] [id number] [address]- 6941 Sep, [facility] [address] [facility] [id number], [place] [address]- 5538 Aug, [facility] [address] [facility] [id number], [place] [address]- 1256 Aug, [facility] [address] [id number] [id number] Apr, [facility] [address] [id number], [place] [address]- 6795 Apr, [facility] [address] [facility] [id number], [place] [address]- 5286 Dec, IMMUNIZATIONS No Known Immunizations SOCIAL HISTORY Never Assessed REASON FOR VISIT Gait Disturbance f/u-H Edward GARCÍA PLAN OF CARE Activity Details Follow Up 3 Months Reason:BP VITAL SIGNS Height 71 in 2017-07-08 Weight 213.5 lbs 2017-07-08 Temperature 98.1 degrees Fahrenheit 2017-07-08 Heart Rate 72 bpm 2017-07-08 Respiratory Rate 20 2017-07-08 BMI 29.77 kg/m2 2017-07-08 Blood pressure systolic 190 mmHg 2017-07-08 Blood pressure diastolic 118 mmHg 2017-07-08 MEDICATIONS Medication Instructions Dosage Frequency Start Date End Date Duration Status Norvasc 10 mg Orally Once a day 1 tablet 24h Apr, 90 days Active Nexium 40 mg Orally Once a day 1 capsule 24h Dec, 90 days Active Tegretol 200 mg Orally Twice a day 3 tablets 12h 30 days Active RESULTS No Results PROCEDURES No Known procedures INSTRUCTIONS MEDICATIONS ADMINISTERED No Known Medications MEDICAL (GENERAL) HISTORY Type Description Date Medical History hypertension Medical History hyperlipidemia Medical History gastroesophageal reflux disease (GERD) Medical History trigeminal neuralgia Medical History vertigo Surgical History hernia repair Hospitalization History surgery only
--- OUTSIDE RECORDS SUMMARY | 2019-01-09 23:23 | XMS REPORT ---
Author Author ZYA COWAN Organization [facility] Address [address] [place] [address] Care Team Providers Care Cathead Operator Name Role Phone ZAY COWAN Unavailable PROBLEMS Type Condition ICD9-CM Code CBM00-LZ Code Onset Dates Condition Status SNOMED Code Problem Alcohol abuse F10.10 Active 78025883 Problem Gait disturbance R26.9 Active 80452851 Problem Benign prostatic hyperplasia with lower urinary tract symptoms, unspecified morphology N40.1 Active 888464971 Problem Essential hypertension I10 Active 70724036 Problem Trigeminal neuralgia G50.0 Active 68374756 Problem Erectile dysfunction, unspecified erectile dysfunction type N52.9 Active 987201073 Problem Gastro-esophageal reflux disease without esophagitis K21.9 Active 743777588 ALLERGIES No Information ENCOUNTERS Encounter Location Date Diagnosis [place] [address] [place] [id number] [place] [address] 16358- [address] May, Essential hypertension I10 ; Trigeminal neuralgia G50.0 ; Erectile dysfunction, unspecified erectile dysfunction type N52.9 ; Vertigo R42 ; Gastro-esophageal reflux disease without esophagitis K21.9 ; Snoring R06.83 and Visual disturbance H53.9 [facility] [id number] [place] [address] 10663- 7610 Apr, Essential hypertension I10 [facility] [address] [id number] [place] [address] 34128- 7334 Mar, [facility] [address] [address]- [address] February, [facility] [id number] [place] [address] 60029- 2437 Dec, [facility] [address] [address]- 1496 14 Jun, 2017 Essential hypertension I10 and Vertigo R42 [place] [address] 88148- 8060 May, Tooth pain K08.89 and Trigeminal neuralgia G50.0 [place] [address] 46788- 5778 Apr, Gait disturbance R26.9 ; Alcohol abuse F10.10 and Essential hypertension I10 [place] [address] 24471- 6989 Apr, Trigeminal neuralgia G50.0 ; Essential hypertension I10 ; Erectile dysfunction, unspecified erectile dysfunction type N52.9 ; Gastro- esophageal reflux disease without esophagitis K21.9 and Vertigo R42 [place] [address] 25716- 8521 Mar, Trigeminal neuralgia G50.0 [place] [address] 43931- 4541 February, Trigeminal neuralgia G50.0 and Erectile dysfunction, unspecified erectile dysfunction type N52.9 [place] [address] 94319- 8442 Oct, Erectile dysfunction, unspecified erectile dysfunction type N52.9 [place] [address] [address] [id number] [place] [address] 23337- 5368 Oct, Gastro-esophageal reflux disease without esophagitis K21.9 [place] [address] 58041- 9925 Oct, Erectile dysfunction, unspecified erectile dysfunction type N52.9 [place] [address] [address]- 1190 Oct, Trigeminal neuralgia G50.0 ; Erectile dysfunction, unspecified erectile dysfunction type N52.9 and Vertigo R42 [place] [address] 65541- 5220 Sep, Elevated PSA R97.20 ; Benign prostatic hyperplasia with lower urinary tract symptoms, unspecified morphology N40.1 and Trigeminal neuralgia G50.0 [place] [address] 24036- 2314 Aug, [facility] [address] [id number] [place] [address] 16877- 1500 Aug, Gastro-esophageal reflux disease without esophagitis K21.9 ; Vertigo R42 ; Erectile dysfunction, unspecified erectile dysfunction type N52.9 ; Trigeminal neuralgia G50.0 ; Essential hypertension I10 and Prostate cancer screening Z12.5 [place] [address] 83415- 7637 Aug, [facility] [address] 60221- 1415 Jun, [place] [address] 16451- 8512 May, Erectile dysfunction, unspecified erectile dysfunction type N52.9 ; Trigeminal neuralgia G50.0 and Essential hypertension I10 [place] [address] [address] [id number] [place] [address] 83538- 6423 Nov, [facility] [address] [id number] [place] [address] 05891- 2034 Aug, Trigeminal neuralgia G50.0 ; Insomnia, unspecified type G47.00 and Weight loss R63.4 [facility] [address] [id number] [place] [address] 71375- 6847 Jul, [facility] [address] [id number] [place] [address] 49661- 5314 Jun, [facility] [address] [id number] [place] [address] 46971- 5035 Apr, [facility] [address] [id number] [place] [address] 78214- 1956 February, Neuropathy 355.9 ; GERD (gastroesophageal reflux disease) 530.81 ; Erectile disorder, generalized, mild 302.72 and High serum creatinine 790.99 [facility] [address] [address] 6[address] February, [facility] [address], [place] [address]- 2075 Jan, [facility] [id number] [address]- 2800 Jan, [facility] [id number] [address]- 4747 Dec, [facility] [address] [place] [address] 19253- 3465 Dec, [facility] [id number] [address]- 7440 Dec, [facility] [address] [place] [address] 49415- 5683 Dec, [facility] [address], [place] [address]- 3054 Dec, [facility] [address] [address]- 6958 Dec, [facility] [address] [address]- 2679 Nov, [facility] [address], [place] [address]- 8193 Oct, [facility] [address], [place] [address]- 0291 Oct, [facility] [address], [place] [address]- 5531 Oct, [facility] [address], [place] [address]- 5947 Oct, [facility] [address] [place] [id number] [address]- 8426 Sep, [facility] [place] [facility] [address] [id number] [place] [address]- 3975 Sep, [facility] [place] [facility] [address] [id number] [place] [address]- 0932 May, [facility] [place] [facility] [address] [id number] [place] [address]- 0777 May, [facility] [place] [facility] [address] [id number] [place] [address]- 7987 Jan, [facility] [place] [facility] [address] [id number] [place] [address]- 3204 Jan, [facility] [place] [facility] [address] [id number] [place] [address]- 3358 Nov, [facility] [place] [facility] [address] [facility] [id number] [place] [address]- 6918 Nov, [facility] [place] [facility] [address] [id number] [place] [address]- 7646 Nov, [facility] [place] [facility] [address] [id number] [place] [address]- 7184 Nov, [facility] [place] [facility] [address] [facility] [id number] [place] [address]- 9462 Nov, [facility] [place] [facility] [address] [id number] [place] [address]- 3244 Nov, [facility] [place] [facility] [address] [id number] [place] [address]- 2270 Nov, [facility] [place] [facility] [address] [id number] [place] [address]- 0748 Sep, [facility] [place] [facility] [address] [id number] [place] 5344 Sep, [facility] [place] [facility] [address] [facility] [id number] [place] [address]- 3556 Sep, [facility] [place] [facility] [address] [id number], [place] [address]- 2546 Sep, [facility] [address] [facility] [id number] [address]- 2546 Aug, [facility] [address] [place] [id number], [place] [address]- 2546 Aug, [facility] [address] [facility] [id number] [id number] Apr, [facility] [address] [facility] [id number], [place] [address]- 8560 Apr, [facility] [address] [facility] [id number], [place] [address]- 7516 Dec, IMMUNIZATIONS No Known Immunizations SOCIAL HISTORY Never Assessed REASON FOR VISIT Medication refill request PLAN OF CARE VITAL SIGNS MEDICATIONS No Known Medications RESULTS No Results PROCEDURES No Known procedures INSTRUCTIONS MEDICATIONS ADMINISTERED No Known Medications MEDICAL (GENERAL) HISTORY Type Description Date Medical History hypertension Medical History hyperlipidemia Medical History gastroesophageal reflux disease (GERD) Medical History trigeminal neuralgia Medical History vertigo Surgical History hernia repair Hospitalization History surgery only
--- OUTSIDE RECORDS SUMMARY | 2019-01-09 23:23 | XMS REPORT ---
Author Author ZAY COWAN Organization [employer] Address Unknown Phone Unavailable Care Team Providers Care Immersion Metal Cleaner Name Role Phone ZAY COWAN CP Unavailable Allergies No Known Allergies Problems Problem Type Condition Code Onset Dates Condition Status Problem Esophageal reflux 530.81 Active Problem Other and unspecified hyperlipidemia 272.4 Active Problem Routine general medical examination at health care facility V70.0 Active Problem Cough 786.2 Active Problem Personal history of tobacco use, presenting hazards to health V15.82 Active Problem Issue of repeat prescriptions V68.1 Active Medications Medication Code System Code Instructions Start Date End Date Status Dosage Tegretol [facility] 2001 [address]-30 200 MG Orally Twice a day Nov 20, 2014 2 tablet by Oral route 2 times per day Results No Known Results Summary Purpose [employer] Submission
--- OUTSIDE RECORDS SUMMARY | 2019-01-09 23:23 | XMS REPORT ---
Author Author ZAY COWAN [facility] Address [address] [place] [address] Care Team Providers Care Claims Counsel Name Role Phone ZAY COWAN Unavailable PROBLEMS Type Condition ICD9-CM Code [id number] Code Onset Dates Condition Status SNOMED Code Problem Alcohol abuse F10.10 Active 46893898 Problem Gait disturbance R26.9 Active 10453002 Problem Benign prostatic hyperplasia with lower urinary tract symptoms, unspecified morphology N40.1 Active 742187022 Problem Essential hypertension I10 Active 85003657 Problem Trigeminal neuralgia G50.0 Active 08633642 Problem Erectile dysfunction, unspecified erectile dysfunction type N52.9 Active 208613153 Problem Gastro-esophageal reflux disease without esophagitis K21.9 Active 771040117 ALLERGIES Unknown Allergies SOCIAL HISTORY No smoking Hx information available PLAN OF CARE VITAL SIGNS MEDICATIONS Medication Instructions Dosage Frequency Start Date End Date Duration Status Levitra 10 mg Orally Once a day 1 tablet as needed 24h Oct,Oct 07 days Active RESULTS No Results PROCEDURES No Known procedures IMMUNIZATIONS No Known Immunizations
--- OUTSIDE RECORDS SUMMARY | 2019-01-09 23:24 | XMS REPORT ---
Author Author ZAY COWAN [facility] Address [address] [place] [address] Care Team Providers Care Judge'S Clerk Name Role Phone ZAY COWAN Unavailable PROBLEMS Type Condition ICD9-CM Code OHC75-GY Code Onset Dates Condition Status SNOMED Code Problem Alcohol abuse F10.10 Active 15449989 Problem Gait disturbance R26.9 Active 43160183 Problem Benign prostatic hyperplasia with lower urinary tract symptoms, unspecified morphology N40.1 Active 894695623 Problem Essential hypertension I10 Active 81458989 Problem Trigeminal neuralgia G50.0 Active 69993638 Problem Gastro-esophageal reflux disease without esophagitis K21.9 Active 268122178 Problem Erectile dysfunction, unspecified erectile dysfunction type N52.9 Active 067516933 ALLERGIES Substance Reaction Event Type Date Status N.K.D.A. Unknown Non Drug Allergy Sep, Unknown SOCIAL HISTORY No smoking Hx information available PLAN OF CARE Activity Details Follow Up 2 Months Reason:PSA VITAL SIGNS Height 71 in 2016-10-22 Weight 214.6 lbs 2016-10-22 Temperature 98.4 degrees Fahrenheit 2016-10-22 Heart Rate 88 bpm 2016-10-22 Respiratory Rate 20 2016-10-22 BMI 29.93 kg/m2 2016-10-22 Blood pressure systolic 182 mmHg 2016-10-22 Blood pressure diastolic 118 mmHg 2016-10-22 MEDICATIONS Medication Instructions Dosage Frequency Start Date End Date Duration Status Naproxen 500 MG Orally every 12 hrs 1 tablet as needed 12h May, Nov, 90 days Active Tegretol 200 mg Orally 3 times a day 2 tablets 8h 30 days Active Flomax 0.4 MG Orally Once a day 1 capsule 24h Sep, Nov, 30 day(s) Active Nexium 40 mg Orally Once a day 1 capsule 24h Dec, 90 days Active Viagra 100 MG Orally Once a day 1 tablet as needed 24h February,Dec 30 days Active RESULTS No Results PROCEDURES Procedure Date Ordered Related Diagnosis Body Site Office Visit, Est Pt., Level 3 Oct 22, 2016 IMMUNIZATIONS No Known Immunizations
--- OUTSIDE RECORDS SUMMARY | 2019-01-09 23:24 | XMS REPORT ---
Author Author ZAY COWAN [facility] Address [address] [place] [address] Care Team Providers Care Continuous Mining Operator Name Role Phone ZAY COWAN Unavailable PROBLEMS Type Condition ICD9-CM Code RZA58-QB Code Onset Dates Condition Status SNOMED Code Problem Alcohol abuse F10.10 Active 40230129 Problem Gait disturbance R26.9 Active 61292047 Problem Benign prostatic hyperplasia with lower urinary tract symptoms, unspecified morphology N40.1 Active 062828143 Problem Essential hypertension I10 Active 62051266 Problem Trigeminal neuralgia G50.0 Active 42120047 Problem Erectile dysfunction, unspecified erectile dysfunction type N52.9 Active 273096307 Problem Gastro-esophageal reflux disease without esophagitis K21.9 Active 317760926 ALLERGIES Unknown Allergies SOCIAL HISTORY No smoking Hx information available PLAN OF CARE VITAL SIGNS MEDICATIONS Medication Instructions Dosage Frequency Start Date End Date Duration Status Viagra 100 mg Orally Once a day 1 tablet as needed 24h February, 30 days Active RESULTS No Results PROCEDURES No Known procedures IMMUNIZATIONS No Known Immunizations
--- OUTSIDE RECORDS SUMMARY | 2019-01-09 23:24 | XMS REPORT ---
Author Author ZAY COWAN [facility] Address [address] [place] [address] Care Team Providers Care Senior Sustainability Advisor Name Role Phone ZAY COWAN Unavailable PROBLEMS Type Condition ICD9-CM Code IWF23-LQ Code Onset Dates Condition Status SNOMED Code Problem Alcohol abuse F10.10 Active 94436923 Problem Gait disturbance R26.9 Active 19961198 Problem Benign prostatic hyperplasia with lower urinary tract symptoms, unspecified morphology N40.1 Active 980635170 Problem Essential hypertension I10 Active 37623116 Problem Trigeminal neuralgia G50.0 Active 52542485 Problem Gastro-esophageal reflux disease without esophagitis K21.9 Active 338239593 Problem Erectile dysfunction, unspecified erectile dysfunction type N52.9 Active 604049691 ALLERGIES Unknown Allergies SOCIAL HISTORY No smoking Hx information available PLAN OF CARE VITAL SIGNS MEDICATIONS Medication Instructions Dosage Frequency Start Date End Date Duration Status Cialis 5 mg Orally Once a day 1 tablet 24h Oct, Dec, 30 day(s) Active Tegretol 200 mg Orally 3 times a day 2 tablets 8h 30 days Active Meclizine HCl 25 MG Orally twice a day 1 tablet as needed 12h Oct, 30 day(s) Active RESULTS No Results PROCEDURES No Known procedures IMMUNIZATIONS No Known Immunizations
--- OUTSIDE RECORDS SUMMARY | 2019-01-09 23:24 | XMS REPORT ---
Author Author ZAY COWAN Organization [facility] Address [address] [place] [address] Care Team Providers Care Obiee Obia Solution Architect Name Role Phone ZAY COWAN Unavailable PROBLEMS Type Condition ICD9-CM Code OPT38-HA Code Onset Dates Condition Status SNOMED Code Problem Alcohol abuse F10.10 Active 84787839 Problem Gait disturbance R26.9 Active 02174841 Problem Benign prostatic hyperplasia with lower urinary tract symptoms, unspecified morphology N40.1 Active 900340360 Problem Essential hypertension I10 Active 55895197 Problem Trigeminal neuralgia G50.0 Active 12202640 Problem Erectile dysfunction, unspecified erectile dysfunction type N52.9 Active 701602782 Problem Gastro-esophageal reflux disease without esophagitis K21.9 Active 685077504 ALLERGIES No Known Allergies ENCOUNTERS Encounter Location Date Diagnosis [place] [address] [address]- [address] February, [place] [address] 16532- 2999 Dec, [place] [address] 12130- 2802 Jun, Essential hypertension I10 and Vertigo R42 [place] [address] 41132- 6466 May, Tooth pain K08.89 and Trigeminal neuralgia G50.0 [place] [address] [address]- 4453 24 Apr, 2017 Gait disturbance R26.9 ; Alcohol abuse F10.10 and Essential hypertension I10 [place] [address] 97673- 0495 Apr, Trigeminal neuralgia G50.0 ; Essential hypertension I10 ; Erectile dysfunction, unspecified erectile dysfunction type N52.9 ; Gastro- esophageal reflux disease without esophagitis K21.9 and Vertigo R42 [place] [id number] [place] [address]- [address] Mar, Trigeminal neuralgia G50.0 [place] [address] [address] [id number] [place] [address] 67660- 6218 February, Trigeminal neuralgia G50.0 and Erectile dysfunction, unspecified erectile dysfunction type N52.9 [place] [id number] [place] [address]- 3044 Oct, Erectile dysfunction, unspecified erectile dysfunction type N52.9 [place] [address] [place] [address]- 6700 Oct, Gastro-esophageal reflux disease without esophagitis K21.9 [place] [address] 94596- 9174 Oct, Erectile dysfunction, unspecified erectile dysfunction type N52.9 [place] [address] [address] [id number] [place] [address] 72254- 7614 Oct, Trigeminal neuralgia G50.0 ; Erectile dysfunction, unspecified erectile dysfunction type N52.9 and Vertigo R42 [place] [address] [address] [id number] [place] [address] 10655- 0851 Sep, Elevated PSA R97.20 ; Benign prostatic hyperplasia with lower urinary tract symptoms, unspecified morphology N40.1 and Trigeminal neuralgia G50.0 [place] [address] [address] [id number] [place] [address] 49280- 4766 Aug, [place] [address]- 6112 Aug, Gastro-esophageal reflux disease without esophagitis K21.9 ; Vertigo R42 ; Erectile dysfunction, unspecified erectile dysfunction type N52.9 ; Trigeminal neuralgia G50.0 ; Essential hypertension I10 and Prostate cancer screening Z12.5 [place] [address] [address] [id number] [place] [address] 05550- 0616 Aug, [facility] [address] [id number] [place] [address] 14040- 8697 Jun, [facility] [address] [place] [id number] [place] [address] 56448493- 0813 May, Erectile dysfunction, unspecified erectile dysfunction type N52.9 ; Trigeminal neuralgia G50.0 and Essential hypertension I10 [facility] [address] 19862- 6602 Nov, [facility] [address] 73724- 8489 Aug, Trigeminal neuralgia G50.0 ; Insomnia, unspecified type G47.00 and Weight loss R63.4 [facility] [address] [place] [id number] [place] [address] 61016- 3259 Jul, [facility] [address] [place] [address] [id number] [place] [address] 85517- 5428 Jun, [facility] [address] [id number] [place] [address] 66693- 2265 Apr, [facility] [address] [id number] [place] [address] 72214- 5575 February, Neuropathy 355.9 ; GERD (gastroesophageal reflux disease) 530.81 ; Erectile disorder, generalized, mild 302.72 and High serum creatinine 790.99 [facility] [address] [id number] [place] [address] 24583- 7603 February, [facility] [address] [id number] [place] [address] 21571- 7438 Jan, [facility] [address] [id number] [place] [address] 56519- 0306 Jan, [facility] [address] [id number] [place] [address] 05239- 8527 Dec, [facility] [address] [place] [address] [place] [address]- 1137 26 Dec, 2014 [facility] [address] [id number] [place] [address]- 9135 Dec, [facility] [place] [facility] [address] [id number] [place] [address]- 4299 14 Dec, 2014 [facility] [place] [facility] [address] [id number] [place] [address]- 3079 Dec, [facility] [place] [facility] [address] [id number] [place] [address]- 7256 Dec, [facility] [place] [facility] [address] [id number] [place] [address]- 8394 Nov, [facility] [place] [facility] [address] [id number] [place] [address]- 4325 Oct, [facility] [address] [id number] [place] [address]- 4488 Oct, [facility] [address] [id number] [place] [address]- 7778 Oct, [facility] [place] [facility] [address] [id number] [place] [address]- 1877 Oct, [facility] [address] [id number] [place] [address]- 7410 Sep, [facility] [place] [facility] [address] [id number] [place] [address]- 7717 Sep, [facility] [place] [facility] [address] [id number] [place] [address]- 5020 May, [facility] [place] [facility] [address] [id number] [place] [address]- 1252 May, [facility] [place] [facility] [address] [id number] [place] [address]- 0540 Jan, [facility] [place] [facility] [address] [id number] [place] [address]- 5624 Jan, [facility] [place] [facility] [address] [id number] [place] [address]- 6876 Nov, [facility] [address] [id number] [place] [address]- 8047 Nov, [facility] [address] [facility] [id number] [place] [address]- 0516 Nov, [facility] [address] [id number] [place] [address]- 4887 Nov, [facility] [address] [id number] [place] [address]- 4572 Nov, [facility] [address] [facility] [id number] [place] [address]- 7553 Nov, [facility] [address] [facility] [id number] [place] [address]- 1665 Nov, [facility] [address] [id number], [place] [address]- 5654 Sep, [facility] [address] [facility] [id number], [place] [address]- 0600 Sep, [facility] [address] [facility] [id number], [place] [address]- 6578 Sep, [facility] [address] [id number] [address]- 6462 Sep, [facility] [address] [facility] [id number], [place] [address]- 7810 Aug, [facility] [address] [facility] [id number], [place] [address]- 3191 Aug, [facility] [address] [id number] [address] Apr, [facility] [address] [place] [id number] [address]- 4829 Apr, [facility] [address] [facility] [id number], [place] [address]- 2546 Dec, IMMUNIZATIONS No Known Immunizations SOCIAL HISTORY Never Assessed REASON FOR VISIT Hypertension, No concerns just needs med refills- Smita GARCÍA PLAN OF CARE Activity Details Follow Up 3 Months Reason:BP VITAL SIGNS Height 71 in 2017-04-26 Weight 213.6 lbs 2017-04-26 Temperature 98.3 degrees Fahrenheit 2017-04-26 Heart Rate 78 bpm 2017-04-26 Respiratory Rate 20 2017-04-26 BMI 29.79 kg/m2 2017-04-26 Blood pressure systolic 188 mmHg 2017-04-26 Blood pressure diastolic 124 mmHg 2017-04-26 MEDICATIONS Medication Instructions Dosage Frequency Start Date End Date Duration Status Viagra 100 mg Orally Once a day 1 tablet as needed 24h February,Jul 30 days Active Meclizine HCl 25 MG Orally twice a day 1 tablet as needed 12h Oct, 30 day(s) Active Lisinopril 20 mg Orally Once a day 1 tablet 24h Apr, 30 day(s) Active Nexium 40 mg Orally [...]
--- OUTSIDE RECORDS SUMMARY | 2019-01-09 23:24 | XMS REPORT ---
Author Author ZAY COWAN [facility] eClinicalWorks Address Unknown Phone Unavailable Care Team Providers Care Insurance Executive Name Role Phone ZAY COWAN CP Unavailable Allergies, Adverse Reactions, Alerts Substance Reaction Event Type N.K.D.A. Info Not Available Non Drug Allergy Problems Problem Type Condition Code Onset Dates Condition Status Assessment Weight loss R63.4 Active Assessment Trigeminal neuralgia G50.0 Active Assessment Insomnia, unspecified type G47.00 Active Problem Routine general medical examination at [...] Start Date End Date Status Dosage Tegretol [facility] [address]-68 200 MG Orally Twice a day Nov 20, 2014 2 tablet by Oral route 2 times [place] [address]-83 40 MG January 05, 2015 1 capsule by Oral route 1 time per day Carafate [facility] [address]-55 1 GM Orally 4 times a day Sep 18, 2015 1 tablet before meals and at bedtime Viagra NDC [address]-93 100 MG Orally Once a day Sep 18, 2015 1 tablet as needed Nexium NDC [address]-43 40 MG Orally Once a day Sep 18, 2015 1 [place] [address]-90 100 MG Orally Once a day March 14, 2015 1 tablet as needed Procedures Procedure Coding System Code Date COMPREHEN METABOLIC PANEL CPT-4 68462 Sep 18, 2015 ASSAY THYROID STIM HORMONE CPT-4 08674 Sep 18, 2015 COMPLETE CBC W/AUTO DIFF WBC CPT-4 56749 Sep 18, 2015 VENIPUNCT, ROUTINE* CPT-4 61358 Sep 18, 2015 C-REACTIVE PROTEIN CPT-4 34826 Sep 18, 2015 Office Visit, Est Pt., Level 3 CPT-4 44371 Sep 18, 2015 Vital Signs Date/Time: Sep 18, 2015 Temperature 98.4 F Weight 208.9 lbs Height 71 in BMI 29.13 Index Blood Pressure Diastolic 110 mmHg Blood Pressure Systolic 160 mmHg Cardiac Monitoring Heart Rate 76 bpm Results Name Result Date Reference Range Unit Abnormality Flag ROUTINE VENIPUNCTURE Summary Purpose eClinicalWorks Submission
--- OUTSIDE RECORDS SUMMARY | 2019-01-09 23:24 | XMS REPORT ---
Author Author ZAY COWAN [facility] Address [address] [place] [address] Care Team Providers Care Maintenance Groundman Name Role Phone ZAY COWAN Unavailable PROBLEMS Type Condition ICD9-CM Code [id number] Code Onset Dates Condition Status SNOMED Code Problem Issue of repeat prescriptions V68.1 Active Problem Cough 786.2 Active 00138105 Problem Trigeminal neuralgia G50.0 Active 25017892 Problem Alcohol abuse F10.10 Active 14814949 Problem Other and unspecified hyperlipidemia 272.4 Active 33298074 Problem Personal history of tobacco use, presenting hazards to health V15.82 Active 3470569884352 Problem Routine general medical examination at health care facility V70.0 Active 577092567 Problem Esophageal reflux 530.81 Active 456278009 ALLERGIES Unknown Allergies SOCIAL HISTORY No smoking Hx information available PLAN OF CARE VITAL SIGNS MEDICATIONS Unknown Medications RESULTS No Results PROCEDURES No Known procedures IMMUNIZATIONS No Known Immunizations
--- OUTSIDE RECORDS SUMMARY | 2019-01-09 23:24 | XMS REPORT ---
Author Author KAMRYN BRANTLEY Organization eClinicalWorks Address Unknown Phone Unavailable Care Team Providers Care Hairspring Cutter Name Role Phone KAMRYN BRANTLEY CP Unavailable Allergies No Known Allergies Problems Problem Type Condition Code Onset Dates Condition Status Problem Routine general medical examination at health care facility V70.0 Active Problem Esophageal reflux 530.81 Active Problem Trigeminal neuralgia G50.0 Active Problem Issue of repeat prescriptions V68.1 Active Problem Cough 786.2 Active Problem Other and unspecified hyperlipidemia 272.4 Active Problem Personal history of tobacco use, presenting hazards to health V15.82 Active Medications No Known Medications Results No Known Results Summary Purpose eClinicalWorks Submission
--- OUTSIDE RECORDS SUMMARY | 2019-01-09 23:24 | XMS REPORT ---
Author Author ZAY COWAN Organization eClinicalWorks Address Unknown Phone Unavailable Care Team Providers Care Cemetery Workers Supervisor Name Role Phone ZAY COWAN CP Unavailable Allergies No Known Allergies Problems Problem Type Condition ICD-9 Code Onset Dates Condition Status Problem Esophageal [...] Start Date End Date Status Dosage Tegretol [facility] [address]-00 200 MG Orally Twice a day Nov 20, 2014 2 tablet by Oral route 2 times per day Results No Known Results Summary Purpose eClinicalWorks Submission
--- OUTSIDE RECORDS SUMMARY | 2019-01-09 23:25 | XMS REPORT | Continuity of Care Document ---
Author Author [facility] Address Unknown Phone Unavailable Allergies Active Description Code Type Severity Reaction Onset Reported/Identified Relationship to Patient Clinical Status Yes No Known Drug Allergies [id number] Drug Allergy Unknown N/A 05/09/2012 Medications There is no data. Problems Date Dx Coded Attending Type Code Diagnosis Diagnosed By 03/18/2010 350.9 CRANIAL NERVE INJURY TRIGEMINAL NERVE 03/18/2010 784.0 HEADACHE 03/18/2010 CHAPO GONZALES, ZAY S 350.9 CRANIAL NERVE INJURY TRIGEMINAL NERVE 03/18/2010 CHAPO TEA TASTER, ZAY S 784.0 HEADACHE 03/18/2010 CHAPO TEA TASTER, ZAY S 350.9 CRANIAL NERVE INJURY TRIGEMINAL NERVE 03/18/2010 CHAPO TEA TASTER, ZAY S 784.0 HEADACHE 03/18/2010 350.9 CRANIAL NERVE INJURY TRIGEMINAL NERVE 03/18/2010 784.0 HEADACHE 03/18/2010 BOBBY ECHEVERRIA DO K 350.9 CRANIAL NERVE INJURY TRIGEMINAL NERVE 03/18/2010 TORRES ECHEVERRIA DOA K 784.0 HEADACHE 03/18/2010 CHAPO TEA TASTER, ZAY S 350.9 CRANIAL NERVE INJURY TRIGEMINAL NERVE 03/18/2010 CHAPO TEA TASTER, ZAY S 784.0 HEADACHE 01/01/2011 401.1 HYPERTENSION, BENIGN ESSENTIAL 01/01/2011 CHAPO GONZALES, ZAY S 401.1 HYPERTENSION, BENIGN ESSENTIAL 01/01/2011 CHAPO GONZALES ZAY S 401.1 HYPERTENSION, BENIGN ESSENTIAL 01/01/2011 401.1 HYPERTENSION, BENIGN ESSENTIAL 01/01/2011 BOBBY ECHEVERRIA DO K 401.1 HYPERTENSION, BENIGN ESSENTIAL 01/01/2011 CHAPO GONZALES ZAY S 401.1 HYPERTENSION, BENIGN ESSENTIAL 05/09/2012 Ot 350.1 05/09/2012 Ot 784.0 05/19/2012 V15.82 Nicotine abuse 05/19/2012 V68.1 ISSUE OF REPEAT PRESCRIPTIONS 05/19/2012 AMIRA COWAN APRNNDA S V15.82 Nicotine abuse 05/19/2012 AMIRA COWAN APRNNDA S V68.1 ISSUE OF REPEAT PRESCRIPTIONS 05/19/2012 AMIRA COWAN APRNNDA S V15.82 Nicotine abuse 05/19/2012 AMIRA COWAN APRNNDA S V68.1 ISSUE OF REPEAT PRESCRIPTIONS 05/19/2012 V15.82 Nicotine abuse 05/19/2012 V68.1 ISSUE OF REPEAT PRESCRIPTIONS 05/19/2012 JACKI WOODS BOBBY K V15.82 Nicotine abuse 05/19/2012 ECHEVERRIA DO BOBBY K V68.1 ISSUE OF REPEAT PRESCRIPTIONS 05/19/2012 AMIRA COWAN APRNNDA S V15.82 Nicotine abuse 05/19/2012 AMIRA COWAN APRNNDA S V68.1 ISSUE OF REPEAT PRESCRIPTIONS 10/10/2013 AMIRA COWAN APRNNDA S V70.0 EXAM - ROUTINE H&P 10/10/2013 AMIRA COWAN APRNNDA S V70.0 EXAM - ROUTINE H&P 10/10/2013 JACKI WOODS BOBBY K V70.0 EXAM - ROUTINE H&P 10/10/2013 AMIRA COWAN APRNNDA S V70.0 EXAM - ROUTINE H&P 12/12/2013 AMIRA COWAN APRNNDA S 530.81 GERD 12/12/2013 JACKI WOODS BOBBY K 530.81 GERD 12/12/2013 AMIRA COWAN APRNNDA S 530.81 GERD 12/13/2013 AMIRA COWAN APRNNDA S 272.4 HYPERLIPIDEMIA 12/13/2013 ECHEVERRIA DO BOBBY K 272.4 HYPERLIPIDEMIA 12/13/2013 AMIRA COWAN APRNNDA S 272.4 HYPERLIPIDEMIA 02/19/2014 ECHEVERRIA DO BOBBY K 786.2 COUGH 02/19/2014 AMIRA COWAN APRNNDA S 786.2 COUGH 03/08/2015 JANNA RODRIGUEZ, PEREZ Addison Ot 458.29 OTHER IATROGENIC HYPOTENSION 03/08/2015 JANNA RODRIGUEZ, PEREZ Addison Ot 780.79 OTH MALAISE FATIGUE 03/08/2015 JANNA RODRIGUEZ, PEREZ Addison Ot 786.05 SHORTNESS OF BREATH 03/08/2015 PEREZ SALDIVAR MD, Ot 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 09/18/2016 SONYA CHARLETTE Ot F10.129 ALCOHOL ABUSE WITH INTOXICATION, UNSPECI 09/18/2016 CHARLETTE HASSAN DO Ot F17.210 NICOTINE DEPENDENCE, CIGARETTES, UNCOMPL 09/18/2016 CHARLETTE HASSAN DO Ot I10 ESSENTIAL (PRIMARY) HYPERTENSION 09/18/2016 CHARLETTE HASSAN DO Ot R42 DIZZINESS AND GIDDINESS 09/18/2016 CHARLETTE HASSAN DO Ot S00.83XA CONTUSION OF OTHER PART OF HEAD, INITIAL 09/18/2016 CHARLETTE HASSAN DO Ot S20.212A CONTUSION OF LEFT FRONT WALL OF THORAX, 09/18/2016 CHARLETTE HASSAN DO Ot S50.12XA CONTUSION OF LEFT FOREARM, INITIAL ENCOU 09/18/2016 CHARLETTE HASSAN DO Ot W01.0XXA FALL SAME LEV FROM SLIP/TRIP W/O STRIKE 09/18/2016 CHARLETTE HASSAN DO Ot Y90.6 BLOOD ALCOHOL LEVEL OF 120-199 MG/100 ML 09/18/2016 CHARLETTE HASSAN DO Ot Y92.[address] [facility] NON-[facility] (PRIVATE 09/18/2016 CHARLETTE HASSAN DO Ot Y93.9 ACTIVITY, UNSPECIFIED 09/18/2016 CHARLETTE HASSAN DO Ot Y99.8 OTHER EXTERNAL CAUSE STATUS 09/18/2016 CHARLETTE HASSAN DO Ot Z91.14 PATIENT'S OTHER NONCOMPLIANCE WITH MEDIC 09/22/2016 CHARLETTE HASSAN DO Ot F10.129 ALCOHOL ABUSE WITH INTOXICATION, UNSPECI 09/22/2016 CHARLETTE HASSAN DO Ot F17.210 NICOTINE DEPENDENCE, CIGARETTES, UNCOMPL 09/22/2016 CHARLETTE HASSAN DO Ot I10 ESSENTIAL (PRIMARY) HYPERTENSION 09/22/2016 CHARLETTE HASSAN DO Ot R42 DIZZINESS AND GIDDINESS 09/22/2016 CHARLETTE HASSAN DO Ot S00.83XA CONTUSION OF OTHER PART OF HEAD, INITIAL 09/22/2016 CHARLETTE HASSAN DO Ot S20.212A CONTUSION OF LEFT FRONT WALL OF THORAX, 09/22/2016 CHARLETTE HASSAN DO Ot S50.12XA CONTUSION OF LEFT FOREARM, INITIAL ENCOU 09/22/2016 CHARLETTE HASSAN DO Ot W01.0XXA FALL SAME LEV FROM SLIP/TRIP W/O STRIKE 09/22/2016 CHARLETTE HASSAN DO Ot Y90.6 BLOOD ALCOHOL LEVEL OF 120-199 MG/100 ML 09/22/2016 CHARLETTE HASSAN DO Ot Y92.[address] [facility] [address] NON-[facility] (PRIVATE 09/22/2016 CHARLETTE HASSAN DO Ot Y93.9 ACTIVITY, UNSPECIFIED 09/22/2016 CHARLETTE HASSAN DO Ot Y99.8 OTHER EXTERNAL CAUSE STATUS 09/22/2016 CHARLETTE HASSAN DO Ot Z91.14 PATIENT'S OTHER NONCOMPLIANCE WITH MEDIC Procedures Code [place] [address] ROUTINE VENIPUNCTURE 12/12/2013 68334 CBC 12/12/20136826115 GFR CALC (RESULT ONLY) 12/12/2013 62074 CMP 12/12/2013 00176 LIPID PANEL 12/12/2013 25805 CARBAMAZAPINE (TEGRETOL) TOTAL 12/12/2013 66791 TSH 12/12/2013 Results Test Result Range Comp. Metabolic Panel (14) - 09/16/16 09:45 Glucose, Serum 94 mg/dL 65-99 BUN 21 mg/dL 8-27 Creatinine, Serum 1.02 mg/dL 0.76-1.27 eGFR If NonAfricn Am 78 mL/min/1.73 >59 eGFR If Africn Am 91 mL/min/1.73 >59 BUN/Creatinine Ratio 21 10-22 Sodium, Serum 141 mmol/L 136-144 Potassium, Serum 4.0 mmol/L 3.5-5.2 Chloride, Serum 100 mmol/L 97-106 Carbon Dioxide, Total 24 mmol/L 18-29 Calcium, Serum 8.8 mg/dL 8.6-10.2 Protein, Total, Serum 6.4 g/dL 6.0-8.5 Albumin, Serum 4.2 g/dL 3.6-4.8 Globulin, Total 2.2 g/dL 1.5-4.5 A/G Ratio 1.9 1.1-2.5 Bilirubin, Total 0.4 mg/dL 0.0-1.2 Alkaline Phosphatase, S 91 IU/L 39-117 AST (SGOT) 39 IU/L 0-40 ALT (SGPT) 31 IU/L 0-44 Lipid Panel - 09/16/16 09:45 Cholesterol, Total 187 mg/dL 100-199 Triglycerides 146 mg/dL 0-149 HDL Cholesterol 77 mg/dL >39 VLDL Cholesterol Evert 29 mg/dL 5-40 LDL Cholesterol Calc 81 mg/dL 0-99 Prostate-Specific Ag, Serum - 09/16/16 09:45 Prostate Specific Ag, Serum 11.4 ng/mL 0.0-4.0 Complete blood count (CBC) with automated white blood cell (WBC) differential - 09/16/16 19:18 Blood leukocytes automated count (number/volume) 10.8 10*3/uL 4.3-11.0 Blood erythrocytes automated count (number/volume) 4.83 10*6/uL 4.35-5.85 Venous blood hemoglobin measurement (mass/volume) 15.3 g/dL 13.3-17.7 Blood hematocrit (volume fraction) 44 % 40-54 Automated erythrocyte mean corpuscular volume 91 [foz_us] 80-99 Automated erythrocyte mean corpuscular hemoglobin (mass per erythrocyte) 32 pg 25-34 Automated erythrocyte mean corpuscular hemoglobin concentration measurement ( mass/volume) 35 g/dL 32-36 Automated erythrocyte distribution width ratio 14.4 % 10.0-14.5 Automated blood platelet count (count/volume) 208 10*3/uL 130-400 Automated blood platelet mean volume measurement 9.7 [foz_us] 7.4-10.4 Automated blood neutrophils/100 leukocytes 59 % 42-75 Automated blood lymphocytes/100 leukocytes 29 % 12-44 Blood monocytes/100 leukocytes 10 % 0-12 Automated blood eosinophils/100 leukocytes 1 % 0-10 Automated blood basophils/100 leukocytes 1 % 0-10 Blood neutrophils automated count (number/volume) 6.4 10*3 1.8-7.8 Blood lymphocytes automated count (number/volume) 3.2 10*3 1.0-4.0 Blood monocytes automated count (number/volume) 1.1 10*3 0.0-1.0 Automated eosinophil count 0.1 10*3/uL 0.0-0.3 Automated blood basophil count (count/volume) 0.1 10*3/uL 0.0-0.1 PT panel in platelet poor plasma by coagulation assay - 09/16/16 19:18 Prothrombin time (PT) in platelet poor plasma by coagulation assay 13.4 s 12.2-14.7 INR in platelet poor plasma or blood by coagulation assay 1.1 0.8-1.4 Activated partial thromboplastin time (aPTT) in platelet poor plasma bycoagulation assay - 09/16/16 19:18 Activated partial thromboplastin time (aPTT) in platelet poor plasma bycoagulation assay 25 s 24-35 Comprehensive metabolic panel - 09/16/16 19:18 Serum or plasma sodium measurement (moles/volume) 137 mmol/L 135-145 Serum or plasma potassium measurement (moles/volume) 3.9 mmol/L 3.6-5.0 Serum or plasma chloride measurement (moles/volume) 104 mmol/L 98-107 Carbon dioxide 21 mmol/L 21-32 Serum or plasma anion gap determination (moles/volume) 12 mmol/L 5-14 Serum or plasma urea nitrogen measurement (mass/volume) 22 mg/dL 7-18 Serum or plasma creatinine measurement (mass/volume) 1.00 mg/dL 0.60-1.30 Serum or plasma urea nitrogen/creatinine mass ratio 22 NRG Serum or plasma creatinine measurement with calculation of estimated glomerular filtration rate > NRG Serum or plasma glucose measurement (mass/volume) 79 mg/dL 70-105 Serum or plasma calcium measurement (mass/volume) 8.5 mg/dL 8.5-10.1 Serum or plasma total bilirubin measurement (mass/volume) 0.4 mg/dL 0.1-1.0 Serum or plasma alkaline phosphatase measurement (enzymatic activity/volume) 80 U/L 40-136 Serum or plasma aspartate aminotransferase measurement (enzymatic activity/ volume) 47 U/L 5-34 Serum or plasma alanine aminotransferase measurement (enzymatic activity/volume ) 32 U/L 0-55 Serum or plasma protein measurement (mass/volume) 6.3 g/dL 6.4-8.2 Serum or plasma albumin measurement (mass/volume) 4.1 g/dL 3.2-4.5 Magnesium - 09/16/16 19:18 Magnesium 2.2 mg/dL 1.8-2.4 Serum or plasma creatine kinase measurement (enzymatic activity/volume) - 09/16 19:18 Serum or plasma creatine kinase measurement (enzymatic activity/volume) 1028 U/L 30-200 Serum or plasma creatine kinase MB measurement (enzymatic activity/volume) - 19:18 Serum or plasma creatine kinase MB measurement (enzymatic activity/volume) 8.3 ng/mL <6.6 Serum or plasma troponin i.cardiac measurement (mass/volume) - 09/16/16 19:18 Serum or plasma troponin i.cardiac measurement (mass/volume) < ng/ mL <0.30 Serum or plasma thyrotropin measurement by detection limit <=0.05 miu/l (units/ volume) - 09/16/16 19:18 Serum or plasma thyrotropin measurement by detection limit <=0.05 miu/l (units/ volume) 0.48 u[iU]/mL 0.35-4.94 Serum or plasma carbamazepine measurement (mass/volume) - 09/16/16 19:18 Serum or plasma carbamazepine measurement (mass/volume) 12.6 ug/mL 4.0-12.0 Serum or plasma ethanol measurement (mass/volume) - 09/16/16 19:18 Serum or plasma ethanol measurement (mass/volume) 169 mg/dL <10 Complete urinalysis with reflex to culture - 09/16/16 19:36 Urine color determination YELLOW NRG Urine clarity determination CLEAR NRG Urine pH measurement by test strip 5 5-9 Specific gravity of urine by test strip 1.020 1.016- 1.022 Urine protein assay by test strip, semi-quantitative NEGATIVE NEGATIVE Urine glucose detection by automated test strip NEGATIVE NEGATIVE Erythrocytes detection in urine sediment by light microscopy 1+ NEGATIVE Urine ketones detection by automated test strip NEGATIVE NEGATIVE Urine nitrite detection by test strip NEGATIVE NEGATIVE Urine total bilirubin detection by test strip NEGATIVE NEGATIVE Urine urobilinogen measurement by automated test strip (mass/volume) NORMAL NORMAL Urine leukocyte esterase detection by dipstick NEGATIVE NEGATIVE Automated urine sediment erythrocyte count by microscopy (number/high power field) NONE NRG Automated urine sediment leukocyte count by microscopy (number/high power field ) RARE NRG Bacteria detection in urine sediment by light microscopy NONE NRG Squamous epithelial cells detection in urine sediment by light microscopy RARE NRG Crystals detection in urine sediment by light microscopy NONE NRG Casts detection in urine sediment by light microscopy NONE NRG Mucus detection in urine sediment by light microscopy NEGATIVE NRG Complete urinalysis with reflex to culture NO NRG Urine drug screening test - 09/16/16 19:36 Urine phencyclidine detection by screening method NEGATIVE NEGATIVE Urine benzodiazepines detection by screening method NEGATIVE NEGATIVE Urine cocaine detection NEGATIVE NEGATIVE Urine amphetamines detection by screening method NEGATIVE NEGATIVE Urine methamphetamine detection by screening method NEGATIVE NEGATIVE Urine cannabinoids detection by screening method NEGATIVE NEGATIVE Urine opiates detection by screening method NEGATIVE NEGATIVE Urine barbiturates detection NEGATIVE NEGATIVE Screening urine tricyclic antidepressants detection NEGATIVE NEGATIVE Urine methadone detection by screening method NEGATIVE NEGATIVE Urine oxycodone detection NEGATIVE NEGATIVE Urine propoxyphene detection NEGATIVE NEGATIVE CBC With Differential/Platelet - 05/17/17 12:45 WBC 6.5 x10E3/uL 3.4-10.8 RBC 4.64 x10E6/uL 4.14-5.80 Hemoglobin 14.5 g/dL 12.6-17.7 Hematocrit 43.8 % 37.5-51.0 MCV 94 fL 79-97 MCH 31.3 pg 26.6-33.0 MCHC 33.1 g/dL 31.5-35.7 RDW 14.9 % 12.3-15.4 Platelets 250 x10E3/uL 150-379 Neutrophils 58 % Lymphs 29 % Monocytes 11 % Eos 1 % Basos 1 % Neutrophils (Absolute) 3.8 x10E3/uL 1.4-7.0 Lymphs (Absolute) 1.9 x10E3/uL 0.7-3.1 Monocytes(Absolute) 0.7 x10E3/uL 0.1-0.9 Eos (Absolute) 0.1 x10E3/uL 0.0-0.4 Baso (Absolute) 0.0 x10E3/uL 0.0-0.2 Immature Granulocytes 0 % Immature Grans (Abs) 0.0 x10E3/uL 0.0-0.1 Comp. Metabolic Panel (14) - 05/17/17 12:45 Glucose, Serum 101 mg/dL 65-99 BUN 11 mg/dL 8-27 Creatinine, Serum 0.95 mg/dL 0.76-1.27 eGFR If NonAfricn Am 85 mL/min/1.73 >59 eGFR If Africn Am 99 mL/min/1.73 >59 BUN/Creatinine Ratio 12 10-24 Sodium, Serum 143 mmol/L 134-144 Potassium, Serum 4.1 mmol/L 3.5-5.2 Chloride, Serum 101 mmol/L 96-106 Carbon Dioxide, Total 22 mmol/L 18-29 Calcium, Serum 9.2 mg/dL 8.6-10.2 Protein, Total, Serum 6.6 g/dL 6.0-8.5 Albumin, Serum 4.5 g/dL 3.6-4.8 Globulin, Total 2.1 g/dL 1.5-4.5 A/G Ratio 2.1 1.2-2.2 Bilirubin, Total 0.6 mg/dL 0.0-1.2 Alkaline Phosphatase, S 99 IU/L 39-117 AST (SGOT) 31 IU/L 0-40 ALT (SGPT) 27 IU/L 0-44 Folate (Folic Acid), Serum - 05/17/17 12:45 Folate (Folic Acid), Serum 7.6 ng/mL >3.0 C-Reactive Protein, Cardiac - 05/17/17 12:45 C-Reactive Protein, Cardiac 3.29 mg/L 0.00-3.00 Vitamin B12 - 05/17/17 12:45 Vitamin B12 219 pg/mL 211-946 CMP - 06/15/18 09:05 GLUCOSE 107 mg/dL 65-99 UREA NITROGEN (BUN) 16 mg/dL 7-25 CREATININE 1.04 mg/dL 0.70-1.25 eGFR NON-AFR. GAMBIAN 76 mL/min/1.73m2 > OR=60 eGFR 88 mL/min/1.73m2 > OR=60 BUN/CREATININE RATIO NOT APPLICABLE (calc) 6-22 SODIUM 140 mmol/L 135-146 POTASSIUM 3.7 mmol/L 3.5-5.3 CHLORIDE 104 mmol/L 98-110 CARBON DIOXIDE 29 mmol/L 20-32 CALCIUM 9.4 mg/dL 8.6-10.3 PROTEIN, TOTAL 6.9 g/dL 6.1-8.1 ALBUMIN 4.5 g/dL 3.6-5.1 GLOBULIN 2.4 g/dL (calc) 1.9-3.7 ALBUMIN/GLOBULIN RATIO 1.9 (calc) 1.0-2.5 BILIRUBIN, TOTAL 0.8 mg/dL 0.2-1.2 ALKALINE PHOSPHATASE 93 U/L 40-115 AST 27 U/L 10-35 ALT 23 U/L 9-46 Encounters ACCT No. Visit Date/Time Discharge Status Pt. Type Provider Facility Loc./Unit Complaint [id number] 01/07/2015 00:00:00 01/07/2015 23:59:59 CLS Outpatient ZAY COWAN APRN [id number] 02/19/2014 08:43:00 02/19/2014 23:59:59 CLS Outpatient BOBBY ECHEVERRIA DO [id number] 12/12/2013 10:22:00 12/12/2013 23:59:59 CLS Outpatient ZAY COWAN APRN [id number] 10/10/2013 13:34:00 10/10/2013 23:59:59 CLS Outpatient ZAY COWAN APRN [id number] 05/19/2012 15:51:00 05/19/2012 23:59:59 CLS Outpatient [id number] 05/19/2012 15:51:00 05/19/2012 23:59:59 CLS Outpatient [id number] 05/18/2017 13:05:00 Document Registration [id number] 09/17/2016 08:35:00 Document Registration [id number] 05/04/2018 16:55:20 05/04/2018 23:59:59 CLS Outpatient [id number] 09/16/2016 18:13:00 09/16/2016 20:33:00 DIS Outpatient CHARLETTE HASSAN DO [facility] VERTIGO [id number] 03/08/2015 18:22:00 03/08/2015 20:37:00 DIS Emergency PEREZ SALDIVAR MD [facility] SOA [id number] 05/09/2012 11:03:00 Document Registration [id number] 10/31/2018 13:00:00 10/31/2018 23:59:59 CLS Outpatient ZAY COWAN APRN [facility] [id number] 06/15/2018 08:20:00 Document Registration
[2019-01-09] MEDS ORDERED: LACTATED RINGERS 1,000 ML IV ONE (23:38)
[2019-01-09 23:55] LABS: BASOPHILS # (AUTO) 0.1 10^3/uL (0.0-0.1); BASOPHILS % (AUTO) 1 % (0-10); EOSINOPHILS # (AUTO) 0.1 10^3/uL (0.0-0.3); EOSINOPHILS % (AUTO) 1 % (0-10); HEMATOCRIT 44 % (40-54); LYMPHOCYTES # (AUTO) 2.1 X 10^3 (1.0-4.0); LYMPHOCYTES % (AUTO) 29 % (12-44); MEAN CORPUSCULAR HEMOGLOBIN 33 PG (25-34); MEAN CORPUSCULAR HGB CONC 34 G/DL (32-36); MEAN CORPUSCULAR VOLUME 97 FL (80-99); MEAN PLATELET VOLUME 9.5 FL (7.4-10.4); MONOCYTES # (AUTO) 0.6 X 10^3 (0.0-1.0); MONOCYTES % (AUTO) 8 % (0-12); NEUTROPHILS # (AUTO) 4.6 X 10^3 (1.8-7.8); NEUTROPHILS % (AUTO) 62 % (42-75); PLATELET COUNT 228 10^3/uL (130-400); RED CELL DISTRIBUTION WIDTH 13.9 % (10.0-14.5); WHITE BLOOD COUNT 7.4 10^3/uL (4.3-11.0)
[2019-01-10 00:05] LABS: INR 1.1 (0.8-1.4); PROTHROMBIN TIME PATIENT 13.7 SEC (12.2-14.7)
[2019-01-10 00:16] LABS: ALANINE AMINOTRANSFERASE 44 U/L (0-55); ALBUMIN 4.3 GM/DL (3.2-4.5); ALKALINE PHOSPHATASE 95 U/L (40-136); BILIRUBIN,TOTAL 0.4 MG/DL (0.1-1.0); BUN/CREATININE RATIO 12; CARBON DIOXIDE 22 MMOL/L (21-32); CHLORIDE 104 MMOL/L (98-107); CREATINE KINASE 105 U/L (30-200); CREATININE SERUM 1.08 MG/DL (0.60-1.30); GFR ESTIMATED > 60; GLUCOSE 139 MG/DL (70-105); MAGNESIUM 2.2 MG/DL (1.8-2.4); POTASSIUM 3.6 MMOL/L (3.6-5.0); SODIUM 138 MMOL/L (135-145); TOTAL PROTEIN 7.1 GM/DL (6.4-8.2)
[2019-01-10 00:35] LABS: CARBAMAZEPINE (TEGRETOL) 9.4 UG/ML (4.0-12.0); CREATINE KINASE MB 1.7 NG/ML (<6.6); TSH (THYROID ANALYZER) 1.51 UIU/ML (0.35-4.94)
--- NOTE | 2019-01-10 00:41 | ED Syncope ---
General Chief Complaint: Dizziness/Syncope Stated Complaint: WEAK,PASSED OUT Nursing Triage Note: PT REPORTED TO HAVE BECOME UNRESPONSIVE DURING HIS HAIRCUT. BYSTANDERS STATE THE PT WAS COMPLETELY UNRESPONSIVE AND FLACCID FOR AN ESTIMATED TEN MINUTES BEFORE EMS CREWS ARRIVED, PT REFUSED EMS TRANSPORT AND ARRIVED POV. DENIES STRIKING HEAD, DENIES HEAD OR NECK PAIN. Source of Information: Patient, Family History of Present Illness Date Seen by Provider: Jan 09, 2019 Time Seen by Provider: 23:38 Initial Comments PT ARRIVES VIA POV FROM HOME PT WAS SITTING AND FEMALE S.O. WAS CUTTING HIS HAIR TONIGHT, AND SUDDENLY HE STARTED SWEATING, THE WAS SHAKING A LITTLE AND THEN EVERYTHING WENT LIMP AND HE PASSED OUT. DID NOT FALL OUT OF CHAIR--FAMILY CAUGHT HIM--AND NO INJURY FAMILY REPORT THAT HIS EYES WERE OPEN BUT HE WOULD NOT RESPOND FOR ABOUT 10 MINUTES +URINE INCONTINENCE THE FAMILY REPORTS THAT HE WAS DROOLING PT REMEMBERS GETTING HIS HAIR CUT, THEN THE NEXT THING HE REMEMBERS IS HAVING TO CHANGE HIS PANTS BECAUSE HE HAD WET HIMSELF FAMILY CALLED EMS, THEN PT REFUSED TRANSPORT PT DENIES CHEST PAIN, NO PALPITATIONS, NO SHORTNESS OF BREATH, NO NAUSEA/ VOMITING, NO PARESTHESIAS OR MOTOR DEFICITS. 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 HAS HISTORY OF EPISODES OF VERTIGO FAMILY REPORTS THIS HAS HAPPENED 3-4 MONTHS AGO, AND ALSO REFUSED EMS TRANSPORT AND NEVER FOLLOWED UP WITH PCP OR ANYONE FOR IT PT STATES HE HAS NOT TAKEN HIS BLOOD PRESSURE MEDICATION FOR 2 WEEKS, BUT THIS AM HE WOKE UP AND WAS DIZZY, SO TOOK A BP PILL AND IT GOT A LITTLE BETTER. STATES HE IS STILL A LITTLE DIZZY NOW. PT STATES THAT HIS DISTRICT OR DISTRICT OFFICE DIRECTOR TOLD HIM THAT HIS BLOOD PRESSURE MEDICATION DOSE WAS TOO HIGH, AND SHE DECREASED THE DOSE AND PT STATES THAT SHE TOLD HIM "TO TAKE IT ONLY WHEN HE FELT LIKE HE NEEDED IT" HAS HISTORY OF NON-COMPLIANCE PCP: FRANCES-NESHA, DISTRICT OR DISTRICT OFFICE DIRECTOR ZAY COWAN Allergies and Home Medications Allergies Coded Allergies: No Known Drug Allergies (Unverified , 05/09/12) Home Medications Carbamazepine 200 Mg Cpmp.12hr, 200 MG PO BID, (Reported) Esomeprazole Mag Trihydrate 20 Mg Capsule.dr, 1 CAP PO BID, (Reported) Meclizine HCl 25 Mg Tablet, 25-50 MG PO Q6H Prescribed by: CHARLETTE HASSAN on 09/16/162023 Naproxen 500 Mg Tablet, 1 EACH PO BID PRN Prescribed by: KODI PUENTES on 05/09/12 151 Scopolamine 1 Each Patch.td72, 1 EACH TD Q72 HOURS Prescribed by: CHARLETTE HASSAN on 09/16/162023 [?Bp Med] , DAILY, (Reported) Patient Home Medication List Home Medication List Reviewed: Yes Review of Systems Constitutional: diaphoresis, dizziness EENTM: see HPI Respiratory: no symptoms reported Cardiovascular: see HPI; No chest pain, No edema, No palpitations; syncope; No vascular heart diseas Gastrointestinal: no symptoms reported Genitourinary: see HPI Musculoskeletal: no symptoms reported Skin: no symptoms reported Psychiatric/Neurological: See HPI Past Aiwmfli-Cygtcp-Grztho Hx Patient Social History Alcohol Use: Regular Use (DAILY ETOH--"1/2 PINT" OF HARD LIQUOR A DAY) Recreational Drug Use: No Smoking Status: Current Everyday Smoker (1 PPD) Type Used: Cigarettes (1 PPD) Recent Foreign Travel: No Contact w/Someone Who Travel: No Recent Infectious Disease Expo: No Recent Hopitalizations: No Seasonal Allergies Seasonal Allergies: Yes Past Medical History Surgeries: Yes (HERNIA/HEMORRHOID) Abdominal, Rectal Respiratory: No Cardiac: Yes Hypertension Neurological: Yes (IMFLAMMATION 5TH CRANIAL NERVE--TRIGEMINAL NEURALGIA) Vertigo Genitourinary: Yes Prostate Problems Gastrointestinal: Yes Gastroesophageal Reflux Musculoskeletal: No Endocrine: No HEENT: No Cancer: No Psychosocial: No Integumentary: No Blood Disorders: No Physical Exam Vital Signs Vital Signs - First Documented 01/09/19 23:41 Temp 96.2 Pulse 68 Resp 20 B/P (MAP) 120/73 (89) Pulse Ox 98 O2 Delivery Room Air Capillary Refill : Less Than 3 Seconds Height, Weight, BMI Height: 5'10.00" Weight: 210lbs. oz. 95.715659yp; 29.15 BMI Method:Stated General Appearance: No Apparent Distress, WD/WN, Other (STRONG ODOR OF ETOH) HEENT: PERRL/EOMI, TMs Normal, Normal ENT Inspection, Pharynx Normal, Moist Mucous Membranes Neck: Full Range of Motion, Normal Inspection, Non Tender, Supple; No Carotid Bruit, No JVD Cardiovascular: Regular Rate, Rhythm, No Edema, No JVD, No Murmur, Normal Peripheral Pulses Respiratory: Normal Breath Sounds, No Accessory Muscle Use, No Respiratory Distress Gastrointestinal: Normal Bowel Sounds, No Organomegaly, No Pulsatile Mass, Non Tender, Soft Back: Normal Inspection Extremities: Normal Inspection, Normal Range of Motion, Non Tender, No Calf Tenderness, No Pedal Edema Neurologic/Psychiatric: Alert, Oriented x3, No Motor/Sensory Deficits, Normal Mood/Affect, railcar switchman II-XII Norm as Tested; No Abnormal Cerebellar Tests Cranial Nerves: Normal Hearing, Normal Speech, PERRL Coordination/Gait: Normal Finger to Nose, Normal Gait Motor/Sensory: No Motor Deficit, No Sensory Deficit, No Pronator Drift Skin: Normal Color (PT IS BLACK), Warm/Dry Focused Exam Lactate Level 01/10/19 00:20: Lactic Acid Level 2.80*H Lactic Acid Level Laboratory Tests Test 01/10/19 00:20 Lactic Acid Level 2.80 MMOL/L (0.50-2.00) *H Progress/Results/Core Measures Results/Orders Lab Results Laboratory Tests Test 01/09/19 23:45 01/10/19 00:20 01/10/19 00:50 Range/Units White Blood Count 7.4 4.3-11.0 10^3/uL Red Blood Count 4.55 4.35-5.85 10^6/uL Hemoglobin 15.0 13.3-17.7 G/DL Hematocrit 44 40-54 % Mean Corpuscular Volume 97 80-99 FL Mean Corpuscular Hemoglobin 33 25-34 PG Mean Corpuscular Hemoglobin Concent 34 32-36 G/DL Red Cell Distribution Width 13.9 10.0-14.5 % Platelet Count 228 130-400 10^3/uL Mean Platelet Volume 9.5 7.4-10.4 FL Neutrophils (%) (Auto) 62 42-75 % Lymphocytes (%) (Auto) 29 12-44 % Monocytes (%) (Auto) 8 0-12 % Eosinophils (%) (Auto) 1 0-10 % Basophils (%) (Auto) 1 0-10 % Neutrophils # (Auto) 4.6 1.8-7.8 X 10^3 Lymphocytes # (Auto) 2.1 1.0-4.0 X 10^3 Monocytes # (Auto) 0.6 0.0-1.0 X 10^3 Eosinophils # (Auto) 0.1 0.0-0.3 10^3/uL Basophils # (Auto) 0.1 0.0-0.1 10^3/uL Prothrombin Time 13.7 12.2-14.7 SEC INR Comment 1.1 0.8-1.4 Activated Partial Thromboplast Time 24 24-35 SEC Sodium Level 138 135-145 MMOL/L Potassium Level 3.6 3.6-5.0 MMOL/L Chloride Level 104 98-107 MMOL/L Carbon Dioxide Level 22 21-32 MMOL/L Anion Gap 12 5-14 MMOL/L Blood Urea Nitrogen 13 7-18 MG/DL Creatinine 1.08 0.60-1.30 MG/DL Estimat Glomerular Filtration Rate > 60 BUN/Creatinine Ratio 12 Glucose Level 139 H 70-105 MG/DL Calcium Level 9.0 8.5-10.1 MG/DL Corrected Calcium 8.8 8.5-10.1 MG/DL Magnesium Level 2.2 1.8-2.4 MG/DL Total Bilirubin 0.4 0.1-1.0 MG/DL Aspartate Amino Transf (AST/SGOT) 36 H 5-34 U/L Alanine Aminotransferase (ALT/SGPT) 44 0-55 U/L Alkaline Phosphatase 95 40-136 U/L Total Creatine Kinase 105 30-200 U/L Creatine Kinase MB 1.7 <6.6 NG/ML Troponin I < 0.028 <0.028 NG/ML B-Type Natriuretic Peptide 26.2 <100.0 PG/ML Total Protein 7.1 6.4-8.2 GM/DL Albumin 4.3 3.2-4.5 GM/DL TSH [place] Testing 1.51 0.35-4.94 UIU/ML Carbamazepine (Tegretol) Level 9.4 4.0-12.0 UG/ML Serum Alcohol 154 H <10 MG/DL Lactic Acid Level 2.80 *H 0.50-2.00 MMOL/L Urine Color YELLOW Urine Clarity CLEAR Urine pH 5 5-9 Urine Specific [place] 1.025 H 1.016-1.022 Urine Protein 2+ H NEGATIVE Urine Glucose (UA) NEGATIVE NEGATIVE Urine Ketones 1+ H NEGATIVE Urine Nitrite NEGATIVE NEGATIVE Urine Bilirubin NEGATIVE NEGATIVE Urine Urobilinogen 1 NORMAL MG/DL Urine Leukocyte Esterase 1+ H NEGATIVE Urine RBC (Auto) NEGATIVE NEGATIVE Urine RBC NONE /HPF Urine WBC RARE /HPF Urine Squamous Epithelial Cells 0-2 /HPF Urine Crystals NONE /LPF Urine Bacteria FEW H /HPF Urine Casts PRESENT /LPF Urine Hyaline Casts 5-10 H /LPF Urine Mucus LARGE H /LPF Urine Culture Indicated NO Urine Opiates Screen NEGATIVE NEGATIVE Urine Oxycodone Screen NEGATIVE NEGATIVE Urine Methadone Screen NEGATIVE NEGATIVE Urine Propoxyphene Screen NEGATIVE NEGATIVE Urine Barbiturates Screen NEGATIVE NEGATIVE Ur Tricyclic Antidepressants Screen NEGATIVE NEGATIVE Urine Phencyclidine Screen NEGATIVE NEGATIVE Urine Amphetamines Screen NEGATIVE NEGATIVE Urine Methamphetamines Screen NEGATIVE NEGATIVE Urine Benzodiazepines Screen NEGATIVE NEGATIVE Urine Cocaine Screen NEGATIVE NEGATIVE Urine Cannabinoids Screen NEGATIVE NEGATIVE My Orders Orders - CHARLETTE HASSAN DO Saline Lock/Iv-Start (01/09/19 23:38) Ekg Tracing (01/09/19 23:38) O2 (01/09/19 23:38) Monitor-Rhythm Ecg Trace Only (01/09/19 23:38) BNP (01/09/19 23:38) Cbc With Automated Diff (01/09/19 23:38) Comprehensive Metabolic Panel (01/09/19 23:38) Creatine Kinase (01/09/19 23:38) Creatine Kinase Mb (01/09/19 23:38) Lactic Acid Analyzer (01/09/19 23:38) Magnesium (01/09/19 23:38) Protime With Inr (01/09/19 23:38) Partial Thromboplastin Time (01/09/19 23:38) Thyroid Analyzer (01/09/19 23:38) Troponin I (01/09/19 23:38) Ua Culture If Indicated (01/09/19 23:38) Chest 1 View, Ap/Pa Only (01/09/19 23:38) Saline Lock/Iv-Start (01/09/19 23:38) Lactated Ringers (Lr 1000 Ml Iv Solution (01/09/19 23:38) Carbamazepine (Tegretol) (01/09/19 23:49) Ct Head Wo-R/O Stroke (01/10/19 00:09) Ct Angio Head/Neck (01/10/19 00:45) Alcohol (01/10/19 00:50) Drug Screen Stat (Urine) (01/10/19 00:50) Iohexol Injection (Omnipaque 350 Mg/Ml 1 (01/10/19 01:30) Received Contrast (Hold Metformin- Contr (01/10/19 01:30) Medications Given in ED Current Medications Medications Dose Ordered Sig/Vikram Route Start Time Stop Time Status Last Admin Dose Admin Iohexol 100 ml ONCE ONCE IV 01/10/19 01:30 01/10/19 01:31 DC 01/10/19 01:28 100 ML Lactated Ringer's 1,000 ml @ 0 mls/hr Q0M ONCE IV 01/09/19 23:38 01/09/19 23:40 DC 01/09/19 23:47 1,000 MLS/HR Vital Signs/I&O 01/09/19 01/09/19 01/10/19 23:41 23:43 01:10 Temp 96.2 97.0 Pulse 68 68 Resp 20 20 B/P (MAP) 120/73 (89) 120/73 Pulse Ox 98 97 97 O2 Delivery Room Air Room Air Blood Pressure Mean: 89 Progress Progress Note : Progress Note ASYMPTOMATIC FOR REMAINDER OF ER STAY SLEPT SOUNDLY, O2 SATS REMAINED IN UPPER 90'S, HR IN 70'S, AND BP 120'S/80'S /FEMALE S.O. DOES REPORT THAT WHILE SHE WAS CUTTING HIS HAIR, SHE HAD HIS HEAD TILTED BACK / NECK IN EXTENSION WHEN HE PASSED OUT. Initial ECG Impression Date: Jan 09, 2019 Initial ECG Impression Time: 23:47 Initial ECG Rate: 68 Initial ECG Rhythm: Normal Sinus Initial ECG Impression: Nonspecific Changes, 1st Degree AV Block Initial ECG Comparisson: Unchanged Diagnostic Imaging Comments CXR--NO ACUTE PROCESS, PENDING RADIOLOGIST REVIEW CT HEAD--NO ACUTE PROCESS, PER [facility] VIA FAX @ [phone] Reviewed: Reviewed by Me Departure Communication (Admissions) NO BEDS AVAILABLE HERE AT THIS TIME 0155--SPOKE WITH DR. 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 Referrals: [facility] (PCP/Family) Primary Care Physician KEIRY MOTTA MD Patient Instructions: Atherosclerosis, Syncope (Fainting) (DC), Vertigo (a Type of Dizziness) (DC) Add. Discharge Instructions: HOME, REST TAKE YOUR MEDICATIONS PRESCRIBED FOLLOW UP WITH [facility] THIS WEEK FOR FOLLOW UP --THEY WILL CALL YOU TO ARRANGE APPOINTMENT RETURN TO ER IF SYMPTOMS WORSEN All discharge instructions reviewed with patient and/or family. Voiced understanding. CHARLETTE HASSAN DO Jan 10, 2019 00:41
--- NOTE | 2019-01-10 00:56 | NUR ---
PT TO CT DEPT VIA COT IN STABLE CONDITION, NO S/S OF DISTRESS
[2019-01-10 01:03] LABS: BILIRUBIN,URINE NEGATIVE (NEGATIVE); CLARITY,URINE CLEAR; COLOR,URINE YELLOW; GLUCOSE, URINE (UA) NEGATIVE (NEGATIVE); KETONES,URINE 1+ (NEGATIVE); LEUKOCYTE ESTERASE ,URINE 1+ (NEGATIVE); NITRITE,URINE NEGATIVE (NEGATIVE); PH,URINE 5 (5-9); PROTEIN,URINE 2+ (NEGATIVE); UROBILINOGEN,URINE 1 MG/DL (NORMAL)
[2019-01-10 01:20] LABS: AMPHETAMINE SCREEN, URINE NEGATIVE (NEGATIVE); BARBITURATE SCREEN URINE NEGATIVE (NEGATIVE); BENZODIAZEPINES SCREEN URINE NEGATIVE (NEGATIVE); CANNABINOID SCREEN, URINE NEGATIVE (NEGATIVE); COCAINE SCREEN URINE NEGATIVE (NEGATIVE); METHADONE STAT NEGATIVE (NEGATIVE); METHAMPHETAMINE SCREEN URINE S NEGATIVE (NEGATIVE); OPIATE SCREEN URINE NEGATIVE (NEGATIVE); OXYCODONE STAT NEGATIVE (NEGATIVE); PROPOXYPHENE STAT NEGATIVE (NEGATIVE); TRICYCLIC ANTIDEPRESSANTS SCRE NEGATIVE (NEGATIVE)
[2019-01-10 01:21] LABS: BACTERIA,URINE FEW /HPF; SQUAMOUS EPITHELIAL CELL,UR 0-2 /HPF; WBC,URINE RARE /HPF
[2019-01-10] MEDS ORDERED: IOHEXOL 350 MG/ML 100 ML (OMNIPAQUE 350) VIAL IV ONE (01:30)
[2019-01-10] MEDS ORDERED: HOLD METFORMIN - RECEIVED CONTRAST 20 ML VIAL IV SCH (01:30)
--- NOTE | 2019-01-10 01:41 | NUR ---
PT RESTING WITH EYES CLOSED, NO S/S OF DISTRESS
[2019-01-10 02:58] VITALS: BP 133/84
--- NOTE | 2019-01-10 06:48 | Diagnostic Imaging Report ---
INDICATION: Weakness COMPARISON: 09/16/2016 FINDINGS: Single view chest demonstrates clear lungs bilaterally. The heart is normal. There is no pneumothorax. The osseous structures normal. IMPRESSION: Negative chest. Dictated by: Dictated on workstation # [id number]
--- NOTE | 2019-01-10 06:49 | Diagnostic Imaging Report ---
PROCEDURE: CT head wo r/o stroke. TECHNIQUE: Multiple contiguous axial images were obtained through the brain without the use of intravenous contrast. INDICATION: Weakness, passed out COMPARISON: 09/16/2016 FINDINGS: The ventricles normal in size, shape and position. There is no midline shift or mass effect. There is no hemorrhage or evidence of acute ischemia. There is no extra-axial fluid collection. The bony calvarium, visualized paranasal sinuses and mastoids are clear. IMPRESSION: No acute intracranial abnormalities. Agree with preliminary report. Dictated by: Dictated on workstation # [id number]
--- NOTE | 2019-01-10 08:33 | Diagnostic Imaging Report ---
PROCEDURE: CT angiography of the head and CT angiography of the neck with and without contrast. TECHNIQUE: Contiguous noncontrast images were obtained from the skull base through the vertex. After intravenous contrast administration, helical CT angiography of the neck was performed. Source data was reformatted into multiple MIP projections. Delayed post contrast acquisition was also obtained. INDICATION: Stroke. COMPARISON: CT head without contrast performed less than an hour ago. FINDINGS: Delayed postcontrast imaging of the brain demonstrates no abnormal intracranial enhancement. No intracranial hemorrhage or evidence of an acute territorial infarction on this contrast-enhanced exam. No hydrocephalus. Osseous structures are intact. The paranasal sinuses are clear. Conventional aortic arch. There is occlusion of the right vertebral artery origin. This reconstitutes at the V1 segment and remains diminutive throughout its course. There is no flow identified in the V3 or V4 segments. Atherosclerotic calcifications result in less than 50% narrowing of the bilateral internal cavernous segments. There is also less than 50% narrowing of the bilateral internal carotid artery origins bilaterally. The basilar, left vertebral, common carotid, anterior cerebral, middle cerebral, and posterior cerebral arteries widely patent without evidence of aneurysm. Dural venous sinuses are patent. Advanced spondylotic changes in the cervical spine. No acute osseous findings. The visualized paravertebral soft tissues are unremarkable IMPRESSION: 1. 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 Dominant left vertebral artery. 2. Less than 50% narrowing of the bilateral internal carotid artery origins and cavernous segments. 3. No cervical or intracranial arterial aneurysm or dissection. Dictated by: Dictated on workstation # [id number]
== END 2019-01-10 02:58 | disposition home or self-care (01) ==
LOC: EDUNIT# 23:16 → ER 23:18
DX: I65.01 Occlusion and stenosis of right vertebral artery (principal); R55 Syncope and collapse; R42 Dizziness and giddiness; F10.10 Alcohol abuse, uncomplicated; I10 Essential (primary) hypertension; K21.9 Gastro-esophageal reflux disease without esophagitis; F17.210 Nicotine dependence, cigarettes, uncomplicated; Z98.890 Other specified postprocedural states; Z91.19 Patient's noncompliance with other medical treatment and regimen
CPT/HCPCS: 36415; 70450; 70496; 70498; 71045; 80053; 80156; 80306; 80320; 81000; 82550; 82553; 83605; 83735; 83880; 84443; 84484; 85025; 85610; 85730; 93005; 93041

== ENCOUNTER 2022-09-02 14:13 | Emergency (ER) | payer MEDICARE ==
[~2022-09-02] VITALS: Ht 177.8 cm; Wt 95.3 kg
[~2022-09-02 14:13] MED LIST changes: -MECL-106 PO; +MECL-149 PO; +SCOP1PAT10 TD; -SCOP1PAT11 TD
[2022-09-02] MEDS ORDERED: LABETALOL HCL 20 MG/4 ML VIAL IV ONE (14:30)
--- NOTE | 2022-09-02 14:34 | ED General ---
General Chief Complaint: Dizziness/Syncope Stated Complaint: DIZZY|ILL Source of Information: Patient, Family (girlfriend) History of Present Illness Date Seen by Provider: Sep 02, 2022 Time Seen by Provider: 14:19 Initial Comments Patient is a 67-year-old male who presents to the emergency department today with a chief complaint of generalized weakness, dizziness. He was sitting at lunch with his significant other when she noticed that he started to look unwell. She states he became very pale and profusely diaphoretic. She states he complained of feeling dizzy, she had the restaurant packet that her lunch and he came to the emergency department. He vomited in the parking lot. He was slumped in a wheelchair upon exiting the vehicle. On entering the room he is able to stand with assistance. He complains of nausea and feels like he might vomit again. He denies headache. He denies chest pain. He still a little nauseous. No abdominal pain. He does appear to feel unwell. He is quite hypertensive on arrival 212/120s. Timing/Duration: 1/2 Hour Severity: Severe Associated Systoms: Nausea/Vomiting Allergies and Home Medications Allergies Coded Allergies: No Known Drug Allergies (Unverified , 05/09/12) Patient Home Medication List Home Medication List Reviewed: Yes Carbamazepine (Carbamazepine) 200 Mg Cpmp.12hr, 200 MG PO BID, (Reported) Entered as Reported by: AMISH SINGLETARY on 05/09/12 111 Esomeprazole Mag Trihydrate (Nexium) 20 Mg Capsule.dr, 1 CAP PO BID, (Reported) Entered as Reported by: DULCE HOLLEY on 03/08/151944 Meclizine HCl (Meclizine HCl) 25 Mg Tablet, 25-50 MG PO Q6H Prescribed by: CHARLETTE HASSAN on 09/16/162023 Meclizine HCl (Meclizine HCl) 25 Mg Tablet, 25 MG PO Q6H PRN for dizziness Prescribed by: TEJAS CRAWFORD on 09/02/22 165 Naproxen (Naprosyn) 500 Mg Tablet, 1 EACH PO BID PRN Prescribed by: KODI PUENTES on 05/09/12 1517 Scopolamine (Transderm-Scop) 1 Each Patch.td72, 1 EACH TD Q72 HOURS Prescribed by: CHARLETTE HASSAN on 09/16/162023 [?Bp Med] , DAILY, (Reported) Entered as Reported by: DULCE HOLLEY on 03/08/151944 Review of Systems Review of Systems Constitutional: see HPI EENTM: no symptoms reported Respiratory: no symptoms reported Cardiovascular: no symptoms reported Gastrointestinal: nausea, vomiting Genitourinary: no symptoms reported Musculoskeletal: no symptoms reported Skin: no symptoms reported Psychiatric/Neurological: Denies Headache, Denies Numbness, Denies Paresthesia, Denies Tremors; Weakness, Other ("dizzy") All Other Systems Reviewed Negative Unless Noted: Yes Past Iyoktsf-Dwjrsf-Qhalet Hx Patient Social History Tobacco Use?: Yes Substance use?: No Alcohol Use?: Yes Alcohol type: Hard Liquor Alcohol Frequency: Couple times a week Pt feels they are or have been: No Immunizations Up To Date Influenza Vaccine Up-to-Date: No; Not Current First/Initial COVID19 Vaccinat: YES X1 Seasonal Allergies Seasonal Allergies: Yes Past Medical History Surgery/Hospitalization HX: HTN Surgeries: Yes (HERNIA/HEMORRHOID) Abdominal, Rectal Respiratory: No Cardiac: Yes Hypertension Neurological: Yes (IMFLAMMATION 5TH CRANIAL NERVE--TRIGEMINAL NEURALGIA) Vertigo Genitourinary: Yes Prostate Problems Gastrointestinal: Yes Gastroesophageal Reflux Musculoskeletal: No Endocrine: No HEENT: No Cancer: No Psychosocial: No Integumentary: No Blood Disorders: No Physical Exam Vital Signs Vital Signs - First Documented 09/02/22 14:13 Temp 35.7 Pulse 62 Resp 15 B/P (MAP) 208/123 (151) Capillary Refill : Height, Weight, BMI Height: 5'10.00" Weight: 210lbs. oz. 95.575742tq; 29.15 BMI Method:Stated General Appearance: WD/WN, Moderate Distress Eyes: Bilateral Eye Normal Inspection, Bilateral Eye PERRL, Bilateral Eye EOMI HEENT: PERRL/EOMI, TMs Normal, Pharynx Normal, Moist Mucous Membranes Neck: Normal Inspection Respiratory: Lungs Clear, Normal Breath Sounds, No Accessory Muscle Use, No Respiratory Distress Cardiovascular: Regular Rate, Rhythm, Normal Peripheral Pulses Gastrointestinal: Normal Bowel Sounds, Non Tender, Soft Extremity: Normal Capillary Refill, Normal Inspection, Normal Range of Motion, Non Tender, No Calf Tenderness, No Pedal Edema Neurologic/Psychiatric: Alert, Oriented x3, No Motor/Sensory Deficits, Normal Mood/Affect, a p manager II-XII Norm as Tested, Other (no nystagnus; poor effort globally at neuro testing; no gross focal neuro deficits) Skin: Diaphoresis, Pallor Progress/Results/Core Measures Suspected Sepsis SIRS Temperature: Pulse: Respiratory Rate: Laboratory Tests 09/02/22 14:17: White Blood Count 11.7H Blood Pressure / Mean: Laboratory Tests 09/02/22 14:17: Creatinine 0.92, INR Comment 1.1, Platelet Count 242, Total Bilirubin 0.3 Results/Orders Lab Results Laboratory Tests Test 09/02/22 14:17 09/02/22 14:18 09/02/22 16:08 Range/Units White Blood Count 11.7 H 4.3-11.0 10^3/uL Red Blood Count 4.36 4.30-5.52 10^6/uL Hemoglobin 13.8 13.3-17.7 g/dL Hematocrit 41 40-54 % Mean Corpuscular Volume 94 80-99 fL Mean Corpuscular Hemoglobin 32 25-34 pg Mean Corpuscular Hemoglobin Concent 34 32-36 g/dL Red Cell Distribution Width 13.2 10.0-14.5 % Platelet Count 242 130-400 10^3/uL Mean Platelet Volume 9.5 9.0-12.2 fL Immature Granulocyte % (Auto) 0 % Neutrophils (%) (Auto) 48 42-75 % Lymphocytes (%) (Auto) 41 12-44 % Monocytes (%) (Auto) 9 0-12 % Eosinophils (%) (Auto) 1 0-10 % Basophils (%) (Auto) 1 0-10 % Neutrophils # (Auto) 5.6 1.8-7.8 10^3/uL Lymphocytes # (Auto) 4.8 H 1.0-4.0 10^3/uL Monocytes # (Auto) 1.1 H 0.0-1.0 10^3/uL Eosinophils # (Auto) 0.1 0.0-0.3 10^3/uL Basophils # (Auto) 0.1 0.0-0.1 10^3/uL Immature Granulocyte # (Auto) 0.0 0.0-0.1 10^3/uL Prothrombin Time 14.2 12.2-14.7 SEC INR Comment 1.1 0.8-1.4 Activated Partial Thromboplast Time 25 24-35 SEC D-Dimer <= 0.27 0.00-0.49 UG/ML Sodium Level 142 135-145 MMOL/L Potassium Level 3.3 L 3.6-5.0 MMOL/L Chloride Level 105 98-107 MMOL/L Carbon Dioxide Level 26 21-32 MMOL/L Anion Gap 11 5-14 MMOL/L Blood Urea Nitrogen 13 7-18 MG/DL Creatinine 0.92 0.60-1.30 MG/DL Estimat Glomerular Filtration Rate 91 BUN/Creatinine Ratio 14 Glucose Level 117 H 70-105 MG/DL Calcium Level 8.8 8.5-10.1 MG/DL Corrected Calcium 8.9 8.5-10.1 MG/DL Magnesium Level 1.6 1.6-2.4 MG/DL Total Bilirubin 0.3 0.1-1.0 MG/DL Aspartate Amino Transf (AST/SGOT) 17 5-34 U/L Alanine Aminotransferase (ALT/SGPT) 19 0-55 U/L Alkaline Phosphatase 84 40-136 U/L Troponin I < 0.028 <0.028 NG/ML Total Protein 6.4 6.4-8.2 GM/DL Albumin 3.9 3.2-4.5 GM/DL Serum Alcohol 97 H <10 MG/DL Glucometer 126 H 70-110 MG/DL Urine Color ORANGE Urine Clarity CLOUDY Urine pH 5.5 5-9 Urine Specific Bland 1.025 H 1.016-1.022 Urine Protein NEGATIVE NEGATIVE Urine Glucose (UA) NEGATIVE NEGATIVE Urine Ketones NEGATIVE NEGATIVE Urine Nitrite NEGATIVE NEGATIVE Urine Bilirubin NEGATIVE NEGATIVE Urine Urobilinogen 0.2 < = 1.0 MG/DL Urine Leukocyte Esterase NEGATIVE NEGATIVE Urine RBC (Auto) NEGATIVE NEGATIVE Urine RBC NONE /HPF Urine WBC RARE /HPF Urine Squamous Epithelial Cells 0-2 /HPF Urine Crystals NONE /LPF Urine Bacteria FEW H /HPF Urine Casts NONE /LPF Urine Mucus SMALL H /LPF Urine Culture Indicated YES My Orders Orders - TEJAS CRAWFORD MD Cbc With Automated Diff (09/02/22 14:25) Protime With Inr (09/02/22 14:25) Partial Thromboplastin Time (09/02/22 14:25) Comprehensive Metabolic Panel (09/02/22 14:25) Fibrin Degradation Products (09/02/22 14:25) Troponin I [place] (09/02/22 14:25) Ua Culture If Indicated (09/02/22 14:25) Chest 1 View, Ap/Pa Only (09/02/22 14:25) Ekg Tracing (09/02/22 14:25) Nothing By Mouth (09/02/22 Lunch) Accucheck Stat ONCE (09/02/22 14:25) Ed Iv/Invasive Line Start (09/02/22 14:25) Ed Iv/Invasive Line Start (09/02/22 14:25) Vital Signs Stroke Patient Q15M (09/02/22 14:25) Ct Head Wo-R/O Stroke (09/02/22 14:25) O2 (09/02/22 14:25) Intake & Output ,, (09/02/22 14:25) Monitor-Rhythm Ecg Trace Only (09/02/22 14:25) Dysphagia Screening Tool [id number] (09/02/22 14:25) Post Thrombolytic Adminstratio (09/02/22 14:25) Alcohol (09/02/22 14:28) Magnesium (09/02/22 14:35) Meclizine Tablet (Antivert Tablet) (09/02/22 16:15) Urine Culture (09/02/22 16:08) Medications Given in ED Vital Signs/I&O 09/02/22 09/02/22 14:13 17:06 Temp 35.7 35.7 Pulse 62 60 Resp 15 15 B/P (MAP) 208/123 (151) 154/89 Capillary Refill : Point of Care Testing Finger Stick Blood Glucose: 126 Blood Glucose Action Taken: DR NOTIFIED Progress Note #1: Time: 14:38 Progress Note After patient settled into the room - next set of VS show Sys BP 159 and HR 54. Will continue to monitor. Progress Note #2: Time: 16:05 Progress Note Patient reevaluated after laboratory studies. He has a blood pressure in the 130s systolic. His pulse is in the middle 60s. He is feeling much better but still a little "dizzy". Evaluation today includes stroke "work-up" including magnesium, EKG, troponin. All of his labs are reviewed and within normal limits. No elevated white blood cell count concerning for infection. Magnesium is normal. Troponin is negative. Renal function is good, liver function is good. No ongoing concerns for stroke or sepsis. No concern for acute coronary syndrome. It is likely that when the patient became vertiginous he vagal. This may explain his profuse diaphoresis and altered mental status. However he was hypertensive on arrival. We will give him some meclizine and see if this helps his symptoms over the next 30 minutes. Anticipate discharge to home. No clinical or objective findings to warrant further studies from the emergency department or admission. All questions are sought and answered Progress Note #3: Time: 16:48 Progress Note Meclizine made the patient feel much better. desires discharge home. No concerns for any significant pathology such as ACS, Stroke, sepsis as work up is essentially unremarkable. ECG Initial ECG Impression Date: Sep 02, 2022 Initial ECG Impression Time: 14:29 Initial ECG Rate: 59 Initial ECG Rhythm: S.Home Initial ECG Intervals [place] 309 QRS 117 QTc 450 Comment No ectopy is noted, sinus bradycardia at 59 bpm, diffuse nonspecific ST-T wave changes over the precordium, Q waves inferiorly leads III and aVF no ST segment elevation or depression is noted Diagnostic Imaging Diagonstic Imaging: CT Comments [facility] [place], [place] NAME: KAMRYN ALAS [facility] REC#: [id number] PT STATUS: REG ER : 1955 PHYSICIAN: TEJAS CRAWFORD MD ADMIT DATE: 09/02/22/ER Draft Date of Exam:09/02/22 CT HEAD WO-R/O STROKE INDICATION: Nausea and vomiting and dizziness. TECHNIQUE: Multiple contiguous axial images were obtained through the brain without the use of intravenous contrast. Auto Exposure Controls were utilized during the CT exam to meet ALARA standards for radiation dose reduction. COMPARISON: Comparison made with prior study of 01/10/2019. FINDINGS: There were no extra-axial fluid collections. There are mild diffuse atrophic changes. There is no acute intracranial hemorrhage. No mass effect or midline shift. The ventricles are normal in size and position. There were no acute parenchymal abnormalities detected. Calvarial windows are unremarkable. IMPRESSION: Mild atrophic change with no acute intracranial abnormality. Dictated on workstation # [id number] Dict: 09/02/22 1505 Trans: 09/02/22 1510 AS6 [id number] Interpreted by: KINSEY DANIEL MD Electronically signed by: Diagonstic Imaging: Xray Comments [facility]. [place], [place] NAME: KAMRNY ALAS [facility] REC#: [id number] PT STATUS: REG ER : 1955 PHYSICIAN: TEJAS CRAWFORD MD ADMIT DATE: 09/02/22/ER Draft Date of Exam:09/02/22 CHEST 1 VIEW, AP/PA ONLY INDICATION: Weakness and hypertension. TECHNIQUE: PA chest obtained at 03:01 p.m. and compared to 01/09/2019. FINDINGS: Heart and mediastinal silhouette are normal in appearance. The lungs are clear. There is no pneumothorax or pleural fluid. IMPRESSION: Negative chest. Dictated on workstation # [id number] Dict: 09/02/22 1504 Trans: 09/02/22 1507 AS6 [id number] Interpreted by: KINSEY DANIEL MD Electronically signed by: Departure Impression Primary Impression: Dizziness Additional Impressions: episode of high blood pressure Alcohol intoxication Qualified Codes: F10.929 - Alcohol use, unspecified with intoxication, unspecified Disposition: 01 HOME, SELF-CARE Condition: Stable Departure-Patient Inst. Decision time for Depature: 16:48 Referrals: [facility] (PCP/Family) Primary Care Physician Add. Discharge Instructions: Continue your daily medications as prescribed. Take the meclizine 1 tablet every 6 hours as needed for dizziness. If you have a return of symptoms and you have chest pain or shortness of breath or severe headache please come back to the emergency room for reevaluation. [facility] with [facility] Scripts Meclizine HCl (Meclizine HCl) 25 Mg Tablet 25 MG PO Q6H PRN for dizziness, #20 TAB Prov: TEJAS CRAWFORD MD 09/02/22 Copy Copies To 1: BOBBY ECHEVERRIA KATHRYN M MD Sep 02, 2022 14:34
[2022-09-02 14:35] LABS: BASOPHILS # (AUTO) 0.1 10^3/uL (0.0-0.1); BASOPHILS % (AUTO) 1 % (0-10); EOSINOPHILS # (AUTO) 0.1 10^3/uL (0.0-0.3); EOSINOPHILS % (AUTO) 1 % (0-10); HEMATOCRIT 41 % (40-54); HEMOGLOBIN 13.8 g/dL (13.3-17.7); LYMPHOCYTES # (AUTO) 4.8 10^3/uL (1.0-4.0); LYMPHOCYTES % (AUTO) 41 % (12-44); MEAN CORPUSCULAR HEMOGLOBIN 32 pg (25-34); MEAN CORPUSCULAR HGB CONC 34 g/dL (32-36); MEAN CORPUSCULAR VOLUME 94 fL (80-99); MEAN PLATELET VOLUME 9.5 fL (9.0-12.2); MONOCYTES # (AUTO) 1.1 10^3/uL (0.0-1.0); MONOCYTES % (AUTO) 9 % (0-12); NEUTROPHILS # (AUTO) 5.6 10^3/uL (1.8-7.8); NEUTROPHILS % (AUTO) 48 % (42-75); PLATELET COUNT 242 10^3/uL (130-400); WHITE BLOOD COUNT 11.7 10^3/uL (4.3-11.0)
[2022-09-02 14:38] LABS: ALBUMIN 3.9 GM/DL (3.2-4.5); CHLORIDE 105 MMOL/L (98-107); POTASSIUM 3.3 MMOL/L (3.6-5.0); SODIUM 142 MMOL/L (135-145)
[2022-09-02 14:39] LABS: CALCIUM 8.8 MG/DL (8.5-10.1)
[2022-09-02 14:40] LABS: GLUCOSE 117 MG/DL (70-105)
[2022-09-02 14:41] LABS: TOTAL PROTEIN 6.4 GM/DL (6.4-8.2)
[2022-09-02 14:42] LABS: BILIRUBIN,TOTAL 0.3 MG/DL (0.1-1.0); CARBON DIOXIDE 26 MMOL/L (21-32)
[2022-09-02 14:44] LABS: ALKALINE PHOSPHATASE 84 U/L (40-136); CREATININE SERUM 0.92 MG/DL (0.60-1.30); GFR ESTIMATED 91
[2022-09-02 14:45] LABS: BUN/CREATININE RATIO 14
[2022-09-02 14:47] LABS: ALANINE AMINOTRANSFERASE 19 U/L (0-55)
[2022-09-02 14:59] LABS: FIBRIN DEGRADATION PRODUCTS <= 0.27 UG/ML (0.00-0.49); INR 1.1 (0.8-1.4); PARTIAL THROMBOPLASTIN TIME 25 SEC (24-35); PROTHROMBIN TIME PATIENT 14.2 SEC (12.2-14.7)
--- NOTE | 2022-09-02 15:08 | Diagnostic Imaging Report ---
INDICATION: Weakness and hypertension. TECHNIQUE: PA chest obtained at 03:01 p.m. and compared to 01/09/2019. FINDINGS: Heart and mediastinal silhouette are normal in appearance. The lungs are clear. There is no pneumothorax or pleural fluid. IMPRESSION: Negative chest. Dictated by: Dictated on workstation # [id number]
--- NOTE | 2022-09-02 15:10 | Diagnostic Imaging Report ---
INDICATION: Nausea and vomiting and dizziness. TECHNIQUE: Multiple contiguous axial images were obtained through the brain without the use of intravenous contrast. Auto Exposure Controls were utilized during the CT exam to meet ALARA standards for radiation dose reduction. COMPARISON: Comparison made with prior study of 01/10/2019. FINDINGS: There were no extra-axial fluid collections. There are mild diffuse atrophic changes. There is no acute intracranial hemorrhage. No mass effect or midline shift. The ventricles are normal in size and position. There were no acute parenchymal abnormalities detected. Calvarial windows are unremarkable. IMPRESSION: Mild atrophic change with no acute intracranial abnormality. Dictated by: Dictated on workstation # [id number]
[2022-09-02 16:11] LABS: BILIRUBIN,URINE NEGATIVE (NEGATIVE); CLARITY,URINE CLOUDY; COLOR,URINE ORANGE; GLUCOSE, URINE (UA) NEGATIVE (NEGATIVE); KETONES,URINE NEGATIVE (NEGATIVE); LEUKOCYTE ESTERASE ,URINE NEGATIVE (NEGATIVE); NITRITE,URINE NEGATIVE (NEGATIVE); PH,URINE 5.5 (5-9); PROTEIN,URINE NEGATIVE (NEGATIVE)
[2022-09-02] MEDS ORDERED: MECLIZINE 25 MG (ANTIVERT) TAB PO ONE (16:15)
[2022-09-02 16:27] LABS: BACTERIA,URINE FEW /HPF; SQUAMOUS EPITHELIAL CELL,UR 0-2 /HPF; WBC,URINE RARE /HPF
[2022-09-02] MEDS ORDERED: MECL-149 PO (16:50)
[2022-09-02 17:06] VITALS: BP 154/89
== END 2022-09-02 17:07 | disposition home or self-care (01) ==
LOC: EDUNIT# 14:13 → ER 14:15
DX: R42 Dizziness and giddiness (principal); F10.129 Alcohol abuse with intoxication, unspecified; R03.0 Elevated blood-pressure reading, without diagnosis of hypertension; Z28.311 Partially vaccinated for COVID-19
CPT/HCPCS: 70450; 71045; 80053; 81000; 82947; 83735; 84484; 85025; 85379; 85610; 85730; 87088; 93005; 99284; G0480; 36415; 80320